=== PATIENT | female | born 1975 | race Caucasian/White ===

== ENCOUNTER 2024-11-18 10:27 | Outpatient (CLI) | payer OTHER, SELFPAY ==
[2024-11-18 18:20] LABS: Basophils # 0.1 K/mm3 (0-0.2); Basophils % 1.1 % (0.1-2.0); Eosinophils # 0.3 K/mm3 (0.0-0.4); Hematocrit 47.4 % (37.0-47.0); Lymphocytes # 1.4 K/mm3 (0.7-4.5); Lymphocytes % 23.1 % (10-50); Mean Corpuscular HGB Conc 31.6 g/dL (31.8-35.4); Mean Corpuscular Volume 91.5 fl (81-99); Mean Platelet Volume 9.2 fl (7.4-10.4); Monocytes # 0.4 K/mm3 (0.1-1.0); Monocytes % 6.3 % (1.7-9.3); Neutrophils % 63.2 % (37.0-80.0); Platelet Count 389 K/mm3 (142-424); Red Blood Count 5.18 M/mm3 (4.20-5.40); Red Cell Distribution Width 14.4 % (11.5-17.5); White Blood Count 6.2 K/mm3 (4.8-10.8)
[2024-11-18 18:45] LABS: Albumin Level 5.2 g/dl (3.5-5.0); Chloride 105 mmol/L (98-107); Sodium 143 mmol/L (136-145)
[2024-11-18 18:46] LABS: Potassium 4.2 mmoL/L (3.5-5.1)
[2024-11-18 18:48] LABS: Alanine Aminotransferase 29 U/L (12-78); Anion Gap 17.2 mEq/L (5-15); Aspartate Amino Transferase 33 U/L (14-36); Blood Urea Nitrogen 22 mg/dl (7-17); Carbon Dioxide 25 mmol/L (22.0-30.0); Estimated Glomerular Filt Rate 89 ml/min (>60); GFR (African American) 108 ML/MIN (>60)
[2024-11-18 18:49] LABS: Albumin/Globulin Ratio 1.4 (1.1-1.8); Alkaline Phosphatase 91 U/L (38-126); Bilirubin,Total 0.8 mg/dl (0.2-1.3); Calcium 9.6 mg/dl (8.4-10.2); Chol/HDL Ratio 6.7 (1-3.5); Cholesterol 317 mg/dl (140-200); Globulin 3.8 g/dL (1.3-3.2); Glucose 172 mg/dl (74-100); HDL Cholesterol 47 mg/dl (40-60); Triglycerides 195 mg/dl (30-150); VLDL Cholesterol 39 mg/dL (0-40)
[2024-11-18 19:20] LABS: Direct LDL Cholesterol 207.81 mg/dL (100-129)
[2024-11-18 19:35] LABS: Thyroid Stimulating Hormone 1.26 uIU/mL (0.465-4.68)
[2024-11-18 19:51] LABS: Hemoglobin A1C 7.6 % (4.0-6.0)
== END 2024-11-18 23:59 | disposition home or self-care (01) ==
LOC: LAB.DROPOF 11-19 10:42
PROVIDERS: PCP Family Medicine; Visit Provider Family Medicine
DX: I10 Essential (primary) hypertension (principal); I25.10 Atherosclerotic heart disease of native coronary artery without angina pectoris; F90.9 Attention-deficit hyperactivity disorder, unspecified type; E78.5 Hyperlipidemia, unspecified; E11.9 Type 2 diabetes mellitus without complications; Z79.4 Long term (current) use of insulin; Z79.85 Long-term (current) use of injectable non-insulin antidiabetic drugs
CPT/HCPCS: 80053; 80061; 83036; 84443; 85025

== ENCOUNTER 2025-04-05 14:22 | Outpatient (CLI) | payer OTHER, SELFPAY ==
[2025-04-05 20:09] LABS: Alanine Aminotransferase 25 U/L (12-78); Albumin Level 4.2 g/dl (3.5-5.0); Albumin/Globulin Ratio 1.4 (1.1-1.8); Alkaline Phosphatase 98 U/L (38-126); Anion Gap 16.1 mEq/L (5-15); Aspartate Amino Transferase 33 U/L (14-36); Bilirubin,Total 0.6 mg/dl (0.2-1.3); Blood Urea Nitrogen 18 mg/dl (7-17); Calcium 8.4 mg/dl (8.4-10.2); Carbon Dioxide 27 mmol/L (22.0-30.0); Chloride 100 mmol/L (98-107); Cholesterol 166 mg/dl (140-200); Creatinine,Serum 0.50 mg/dl (0.52-1.04); Estimated Glomerular Filt Rate 131 ml/min (>60); GFR (African American) 159 ML/MIN (>60); Globulin 2.9 g/dL (1.3-3.2); Glucose 218 mg/dl (74-100); HDL Cholesterol 36 mg/dl (40-60); Potassium 4.1 mmoL/L (3.5-5.1); Sodium 139 mmol/L (136-145); Total Protein,Serum 7.1 g/dl (6.3-8.2)
[2025-04-05 20:18] LABS: Triglycerides 574 mg/dl (30-150)
[2025-04-05 21:02] LABS: Hepatitis C Ab Qual. W/ RFX NEGATIVE (Negative)
--- OUTSIDE RECORDS SUMMARY | 2025-04-06 07:27 | XMS_ITS | Clinical Summary ---
Author Organization [facility] Address [address] [place] [address] Phone Care Team Providers Care Deputy Court Clerk Name Role Phone Nonstaff, Referring Primary Care Provider Unavai lable Allergies Active Allergy Reactions Criticality Noted Date Comments Androgenic Anabolic Steroid Other (See Comments) 01/28/2023 Caused altered mental status Metformin Diarrhea High 12/20/2023 Semaglutide Nausea And Vomiting High 12/20/2023 Penicillins Hives 01/28/2023 Liraglutide Nausea And Vomiting High 12/20/2023 Ondansetron Hcl Anaphylaxis High 01/28/2023 Medications clopidogreL (PLAVIX) 75 mg Oral Tablet Take 1 Tablet by mouth daily. 30 Tablet 1 3 Active Additional Information Patient not taking.Reported on 06/25/2024 carvediloL (COREG) 6.25 mg Oral Tablet Take 1 Tablet by mouth 2 times daily (with meals). 60 Tablet 3 Active Additional Information Patient taking differently: 12.5 mgOral 2 TIMES DAILY WITH MEALS, Reason: Therapy Completed, Reported on 12/20/2023 rosuvastatin (CRESTOR) 40 mg Oral Tablet Take 40 mg by mouth daily. 3 Active XARELTO 2.5 mg Oral Tablet Take 2.5 mg by mouth 2 times daily (with meals). 3 Active pantoprazole (PROTONIX) 40 mg Oral Tablet, Delayed Release (E.C.) Take 40 mg by mouth nightly. 3 Active nitroGLYCERIN (NITROSTAT) 0.4 mg SL Tablet, Sublingual Place 0.4 mg under the tongue every 5 minutes as needed. Active Magnesium Oxide 250 mg magnesium Oral Tablet Take 250 mg by mouth daily. 3 Active losartan (COZAAR) 25 mg Oral Tablet Take 25 mg by mouth daily. 3 Active isosorbide mononitrate (MONOKET) 20 mg Oral Tablet Take 30 mg by mouth daily. 3 Active fUROsemide (LASIX) 20 mg Oral Tablet Take 20 mg by mouth daily. 3 Active ergocalciferol (DRISDOL) 1,250 mcg (50,000 unit) Oral Capsule Take 50,000 Units by mouth two times a week. 3 Active buPROPion (WELLBUTRIN XL) 150 mg Oral Tablet Sustained Release 24 hr Take 200 mg by mouth every morning. twice daily 3 Active busPIRone (BUSPAR) 5 mg Oral Tablet Take 5 mg by mouth 2 times daily. 3 Active cetirizine (ZYRTEC) 10 mg Oral Tablet Take 10 mg by mouth daily. Active GLUCAGEN HYPOKIT 1 mg Inj Recon Soln 4 Active promethazine (PHENERGAN) 12.5 mg Oral Tablet TAKE ONE (1) TABLET EVERY 8 HOURS BY ORAL ROUTE NEEDED FOR THREE (3) DAYS. Active dapagliflozin propanediol (FARXIGA) 10 mg Oral TabletIndicatio ns:Type 2 diabetes mellitus with hyperglycemia, with long-term current use of insulin (HCC) Take 1 Tablet by mouth daily. 30 Tablet 11 4 Active Insulin [place], Disposable, (OLIVIER PEN NEEDLE) [facility]:Type 2 diabetes mellitus with hyperglycemia, with long-term current use of insulin (HCC) Use to inject insulin up to six times daily. Dx: E 11. 200 Each 11 4 Active Additional Information Patient not taking.Reported on 06/25/2024 aspirin 81 mg Oral Tablet, Delayed Release (E.C.) Take 1 Tablet by mouth daily. 8 Active atomoxetine (STRATTERA) 40 mg Oral Capsule TAKE 1 CAPSULE BY MOUTH EVERY DAY IN THE MORNING Active fenofibrate (TRICOR) 145 mg Oral Tablet Take 1 tablet every day by oral route for 90 days. 4 Active Insulin Syringe-Needle U-100 (TRUEPLUS INSULIN) 1 mL 31 gauge x 5/16 Misc Syringe Subcutaneous (Inject under the skin) 1 Each. 3 Active BRILINTA 90 mg Oral Tablet Take 1 tablet twice a day by oral route for 90 days. 2 Active MOUNJARO 5 mg/0.5 mL SubQ Pen Injector Inject 0.5 mL every week by subcutaneous route for 28 days. 4 Active traZODone (DESYREL) 50 mg Oral Tablet TAKE 1 TABLET BY MOUTH EVERYDAY AT BEDTIME Active insulin glargine U-300 conc (TOUJEO MAX U-300 SOLOSTAR) 300 unit/mL (3 mL) SubQ Insulin Pen Inject 40 units every evening. 6 mL 5 4 Active insulin lispro-aabc (LYUMJEV KWIKPEN U-100 INSULIN) 100 unit/mL SubQ Insulin Pen Inject at meals as directed; may use up to total daily dose of 60 units 30 mL 5 4 Active Blood-Glucose Sensor (DEXCOM G7 SENSOR) Misc Device 1 Each by Misc.(Non-Drug; Combo Route) route every 10 days. 9 Each 3 4 Active ezetimibe (ZETIA) 10 mg Oral Tablet Take 1 Tablet by mouth daily. 30 Tablet 11 4 Active Active Problems Problem Noted Date Diagnosed Date Long-term insulin use 10/31/2023 Hypertension associated with diabetes 10/31/2023 Encounter for long-term (current) use of medicat ions 10/31/2023 Obesity, diabetes, and hypertension syndrome 09/2023 Abnormal weight gain 10/31/2023 Coronary artery disease invo lving [place] coronary artery of [place] heart with angina pectoris 06/21/2023 Severe obesity (BMI 35.0-39.9) with comorbidity 06/21/2023 Type 2 diabetes mellitus 06/21/2023 Gastroesophageal reflux disease without esophagi tis 06/21/2023 Essential hypertension 06/21/2023 Mood disorder 06/21/2023 Acute chest pain 06/20/2023 Surgical History Surgery Date Site/Laterality Comments SECTION ORTHOPEDIC SURGERY SECTION WRIST FRACTURE SURGERY Medical History Medical History Date Comments ST elevation (STEMI) myocardial infarction (HCC) Diabetes mellitus (HCC) Hypertension Coronary artery disease [facility] 04/04/23 Anxiety disorder High cholesterol Gallstone Adhd Family History Medical History Relation Name Comments Diabetes Brother High Blood Pressure Brother Kidney Disease Brother Diabetes Father Diabetes Mother High Blood Pressure Mother Thyroid Disease Mother Diabetes Paternal Grandfather Thyroid Disease Paternal Grandfather High Blood Pressure Paternal Grandmother Diabetes Sister High Blood Pressure Sister Kidney Disease Sister Relation Name Status Comments Brother Father Mother Paternal Grandfather Paternal Grandmother Sister Social History Tobacco Use Types Packs/Day Years Used Date Smoking Tobacco: Never Smokeless Tobacco: Never Tobacco Cessation:Counseling Given: Not Answered Alcohol Use Standard Drinks/Week Comments Never 0 (1 standard drink = 0.6 oz pur e alcohol) Overall Financial Resource Strain (CARDIA) Answe r Date Recorded How hard is it for you to pa y for the very basics like food, housing, medical care, and heating? Not hard at all 06/21/2023 PHQ-2 Answer Date Recorded PHQ-2 Total Score 0 06/21/2023 Exercise Vital Sign Answer Date Recorde d On average, how many days pe r week do you engage in moderate to strenuous exercise (like a brisk walk)? 0 days 06/21/2023 On average, how many minutes do you engage in exercise at this level? 0 min 06/21/2023 Hunger Vital Sign Answer Date Recorded Within the past 12 months, y ou worried that your food would run out before you got the money to buy more. Never true 06/21/20 23 Within the past 12 months, t he food you bought just didn't last and you didn't have money to get more. Never true 06/21/2023 PRAPARE - Transportation Answer Date Re corded In the past 12 months, has l ack of transportation kept you from medical appointments or from getting medications? No 06/01 In the past 12 months, has l ack of transportation kept you from meetings, work, or from getting things needed for daily living? No 06/21/2023 Sexually Active Control Partners Comments Not Currently Comments No Sex and Gender Information Value Date Recorded Sex Assigned at Not on file Legal Sex Female 7:37 PM EDT Gender Identity Not on file Sexual Orientation Not on file Obstetrics History Last Filed Vital Signs Vital Sign Reading Time Taken Comments Blood Pressure 126/80 06/25/2024 10:52 AM EDT Pulse 103 06/25/2024 10:52 AM EDT Temperature 36.9 C (98.5 F) 12/10/2023 3:04 PM EDT Respiratory Rate 12 06/25/2024 10:52 AM EDT Oxygen Saturation 98% 12/10/2023 6:21 PM EDT Inhaled Oxygen Concentration - - Weight 95.7 kg (211 lb) 06/25/2024 10:52 AM EDT Height 154.9 cm (5' 1 ) 06/25/2024 10:52 AM EDT Body Mass Index 39.87 06/25/2024 10:52 AM EDT Plan of Treatment Health Maintenance Due Date Last Done Comments Annual Wellness Exam 12/23/1978 Kidney Health: uACR 12/23/1985 Diabetic Eye Exam 12/23/1993 Pneumococcal Vaccine 0-49 (1 of 2 - PCV) 12/23/1994 Cervical Cancer Screening 12/23/1996 Pap Smear 12/23/1996 HPV/Pap Cotest 12/23/2005 Hepatitis B Vaccine (2 of 3 - 19+ 3-dose series) 02/12/2012 01/15/2012 Breast Cancer Screening 2015 Cologuard 12/23/2020 Colon Cancer Screening 12/23/2020 Colonoscopy 12/23/2020 FIT 12/23/2020 Sigmoidoscopy 12/23/2020 Virtual Colonography 12/23/2020 COVID-19 Vaccine ( season) 2024 Lipids 06/21/2024 06/21/2023, 03/01/2022 Hemoglobin A1c 12/14/2024 06/16/2024, 02/0 09/2023, 06/21/2023, Additional history exists Influenza Vaccine (#1) 2025 06/16/2019, 2017 Kidney Health: eGFR 06/16/2025 06/16/2024, 12/10/2023, 06/21/2023, Additional history exists DTaP/TDaP/Td (2 - Td or Tdap) 03/10/2029 03/10/2019 Meningococcal B Vaccine Aged Out No l onger eligible based on patient's age to complete this topic Procedures Procedure Name Priority Date/Time Associated Diagnosis Comments COMPREHENSIVE METABOLIC PANEL Routine 06/16/2024 HEMOGLOBIN A1C Routine 06/16/2024 LIPID SCREEN Routine 06/21/2023 10:01 AM EDT from Last 3 Months or Most Recently Relevant to Health Maintenance Results * HEMOGLOBIN A1C (06/16/2024) Hgb A1C 7.0 SEP OFFICE Comment:4.8-5.6 Blood VENOUS BLOOD / Unknown 06/16/2024 us Historical Provider CHEMISTRY ORDERABLES Final R esult SEP OFFICE * COMPREHENSIVE METABOLIC PANEL (06/16/2024) Glucose 167 MG/DL SEP OFFICE Comment:70-99 BUN 19 4 - 21 MG/DL SEP OFFICE Comment:-24 Creatinine 0.8 0.5 - 1.1 MG/DL SEP OFFICE Comment:0.57-1.00 EGFR 94.0 ML/MIN/1.7 3M2 SEP OFFICE Comment:>59 BUN/Creatinine Ratio 24 SEP OFFICE Comment:9-23 Sodium 141 137 - 147 MMOL/L SEP OFFICE Comment:134-144 Potassium 4.2 3.4 - 5.3 MMOL/L SEP [facility]ICE Comment:3.5-5.2 Chloride 102 99 - 108 MMOL/L SEP [facility]ICE Comment:96-106 CO2 21 MMOL/L SEP OFFICE Comment:20-29 Calcium 9.9 8.6 - 10.4 mg/dL SEP OFFICE Comment:8.7-10.2 Protein, Total 7.2 SEP OFFICE Comment:6.0-8.5 Albumin 4.3 GM/DL SEP OFFICE Comment:3.9-4.9 Globulin 2.9 G/DL(CALC) SEP OFFICE Comment:1.5-4.5 Total Bilirubin 0.4 0.1 - 1.4 MG/DL SEP OFFICE Comment:0.0-1.2 Alkaline Phosphatase 63 SEP OFFICE Comment:44-121 AST 19 13 - 35 IU/L SEP OFFICE Comment:0-40 ALT 18 7 - 35 IU/L SEP OFFICE Comment:0-32 Blood VENOUS BLOOD / Unknown 06/16/2024 us Historical Provider CHEMISTRY ORDERABLES Final R esult Performing Organization Address [facility] Co de Phone Number SEP OFFICE * LIPID SCREEN (06/21/2023 10:01 AM EDT) Cholesterol 143 <200 mg/dL 06/21/2023 11:12 AM EDT [employer] Comment: < 200 Desirable 200 - 239 Borderline High >= 240 High Triglyceride 142 <150 mg/dL 06/21/2023 11:12 AM EDT [employer] Comment: < 150 Normal 150 - 199 Borderline High 200 - 499 High >= 500 Very High HDL 41 >=40 mg/dL 06/21/2023 11:12 AM EDT [employer] Comment: > 60 Optimal 40 - 60 Acceptable < 40 Low LDL Calculated 77 <100 mg/dL 06/21/2023 11:12 AM EDT [employer] Comment: < 100 Optimal 100 - 129 Near or above optimal 130 - 159 Borderline High 160 - 189 High >= 190 Very High Non-HDL-C Calculated 102 <=129 mg/dL 06/21/2023 11:12 AM EDT [employer] Comment: <130 Desirable 130-159 Above Desirable 160-189 Borderline High 190-219 High >= 220 Very High Fasting Specimen? Yes None 023 11:12 AM EDT [facility] Blood VENOUS BLOOD / Unknown Venipuncture / Unknown 06/21/2023 10:01 AM EDT 06/21/2023 10:14 AM EDT Jerad Beltran DO CHEMISTRY ORDERABLES Fin al Result Performing Organization Address [facility] Co de Phone Number [employer] [address] [facility] , [place] [address] [facility] [address] [place] [address] from Last 3 Months or Most Recently Relevant to Health Maintenance Insurance [employer] [id number] [employer] [facility] [id number] [id number] [employer] [place] [employer] [id number] Advance Directives For more information, please contact: [phone] * Full Code (Latest Code Status on File) Date Activated Date Inactivated Comments 06/20/2023 5:34 PM 06/21/2023 6:[address] Clerk Relationship Specialty Start Date End Date Nonstaff, Referring PCP - General 12/10/23
[2025-04-07 09:14] LABS: Hepatitis B Surface Antigen Negative (Negative)
== END 2025-04-05 23:59 | disposition home or self-care (01) ==
LOC: LAB.DROPOF 04-06 07:25
PROVIDERS: PCP Family Medicine; Visit Provider Family Medicine
DX: E11.9 Type 2 diabetes mellitus without complications (principal); I10 Essential (primary) hypertension; E78.5 Hyperlipidemia, unspecified; Z11.59 Encounter for screening for other viral diseases
CPT/HCPCS: 80053; 80061; 86803; 87340; 87389

== ENCOUNTER 2025-04-18 20:53 | Emergency (ER) | payer OTHER, SELFPAY ==
[2025-04-18] VITALS (8 sets, daily range): BP systolic 121–163; BP diastolic 53–92; PULSE 77–97; RESP 12–97; TEMP 36.6; O2SAT 94–98; BMI 40.0
--- NOTE | 2025-04-18 20:46 | CT_ITS ---
PROCEDURE INFORMATION: Exam: CT Head Without Contrast Exam date and time: 04/18/2025 9:05 PM Age: 49 years old Clinical indication: Injury or trauma; Other: Fall severe posterior EDGE anticoagulant TECHNIQUE: Imaging protocol: Computed tomography of the head without contrast. Radiation optimization: All CT scans at this facility use at least one of these dose optimization techniques: automated exposure control; mA and/or kV adjustment per patient size (includes targeted exams where dose is matched to clinical indication); or iterative reconstruction. COMPARISON: No relevant prior studies available. FINDINGS: Brain: Normal. No hemorrhage. Unremarkable white matter. No mass effect. Cerebral ventricles: No ventriculomegaly. Paranasal sinuses: Visualized sinuses are unremarkable. No fluid levels. Mastoid air cells: Visualized mastoid air cells are well aerated. Bones: Unremarkable. No acute fracture. Soft tissues: Unremarkable. IMPRESSION: No acute intracranial abnormality.
--- NOTE | 2025-04-18 20:46 | CT_ITS ---
PROCEDURE INFORMATION: Exam: CTA Head With Contrast, Arteriography Exam date and time: 04/18/2025 9:08 PM Age: 49 years old Clinical indication: Injury or trauma; Fall; Blunt trauma; Head; Additional info: Fall severe posterior EDGE anticoagulant TECHNIQUE: Imaging protocol: Computed tomographic angiography of the head with contrast. Exam focused on the arteries. 3D rendering (Not supervised by radiologist): MIP and/or 3D reconstructed images were created by the technologist. Radiation optimization: All CT scans at this facility use at least one of these dose optimization techniques: automated exposure control; mA and/or kV adjustment per patient size (includes targeted exams where dose is matched to clinical indication); or iterative reconstruction. Contrast material: ISO 370; Contrast volume: 80 ml; Contrast route: INTRAVENOUS (IV); COMPARISON: CT HEAD/BRAIN WO CON 04/18/2025 9:05 PM FINDINGS: ANTERIOR CIRCULATION: Right internal carotid artery: Intracranial segment is patent with no significant stenosis. No aneurysm. Right middle cerebral artery: No occlusion or significant stenosis. No aneurysm. Right anterior cerebral artery: No occlusion or significant stenosis. No aneurysm. Left internal carotid artery: Intracranial segment is patent with no significant stenosis. No aneurysm. Left middle cerebral artery: No occlusion or significant stenosis. No aneurysm. Left anterior cerebral artery: No occlusion or significant stenosis. No aneurysm. POSTERIOR CIRCULATION: Right vertebral artery: No occlusion or significant stenosis. No aneurysm. Left vertebral artery: No occlusion or significant stenosis. No aneurysm. Basilar artery: No occlusion or significant stenosis. No aneurysm. Right posterior cerebral artery: No occlusion or significant stenosis. No aneurysm. Left posterior cerebral artery: No occlusion or significant stenosis. No aneurysm. Brain: No definite mass, mass effect, or midline shift. Cerebral ventricles: No ventriculomegaly. Bones/joints: Unremarkable. No acute fracture. Soft tissues: Unremarkable. IMPRESSION: No large vessel stenosis or occlusion.
--- NOTE | 2025-04-18 20:46 | CT_ITS ---
PROCEDURE INFORMATION: Exam: CTA Neck With Contrast Exam date and time: 04/18/2025 9:08 PM Age: 49 years old Clinical indication: Injury or trauma; Other: Fall severe posterior EDGE anticoagulant TECHNIQUE: Imaging protocol: Computed tomographic angiography of the neck with contrast. Exam focused on the cervical segments of the vasculature. 3D rendering (Not supervised by radiologist): MIP and/or 3D reconstructed images were created by the technologist. Radiation optimization: All CT scans at this facility use at least one of these dose optimization techniques: automated exposure control; mA and/or kV adjustment per patient size (includes targeted exams where dose is matched to clinical indication); or iterative reconstruction. Contrast material: ISO 370; Contrast volume: 80 ml; Contrast route: INTRAVENOUS (IV); COMPARISON: CT CERVICAL SPINE WO CON 04/18/2025 9:06 PM FINDINGS: Right common carotid artery: No stenosis. No dissection or occlusion. Right internal carotid artery: No stenosis of the extracranial segment. No dissection or occlusion. Right external carotid artery: No occlusion or stenosis of the origin. Left common carotid artery: No stenosis. No dissection or occlusion. Left internal carotid artery: Mild mixed calcific and noncalcified atherosclerotic disease of the left carotid bulb resulting in mild stenosis. Left external carotid artery: No occlusion or stenosis of the origin. Right vertebral artery: No stenosis. No dissection or occlusion. Left vertebral artery: No stenosis. No dissection or occlusion. Soft tissues: Normal. No significant soft tissue swelling. Bones/joints: No acute fracture. IMPRESSION: Mild mixed calcific and noncalcified atherosclerotic disease of the left carotid bulb resulting in mild stenosis. REFERENCES: NASCET CRITERIA. The degree of stenosis in the cervical segment of the internal carotid artery is based on NASCET criteria. Normal is no stenosis. Mild is less than 50% stenosis. Moderate is 50-69% stenosis. Severe is 70% to 99% stenosis. Total occlusion is no detectable patent lumen.
--- NOTE | 2025-04-18 20:46 | ECG_ITS ---
APPROVED REPORT Exam: Resting ECG HR:86 bpm ECG Measurements Heart Rate 86 AXES MO 156 P 58 QRSd 91 QRS 20 QT 374 T 19 QTc 418 Conclusion SINUS RHYTHM LOW QRS VOLTAGE IN PRECORDIAL LEADS [QRS DEFLECTION < 1.0 mV IN CHEST LEADS] Electronically signed by : MIRANDA RODAS, 04/25/2025 07:28:44
--- NOTE | 2025-04-18 20:54 | HMH.EDGENADL ---
Discharge Plan Disposition Patient Disposition: Home, Self-Care Prescriptions Prescriptions: No Action Brilinta 90 mg tablet PO Patient Comments: TAKE 1 TABLET BY MOUTH TWICE DAILY rosuvastatin 40 mg tablet PO Patient Comments: TAKE 1 TABLET BY MOUTH ONCE DAILY isosorbide dinitrate 30 mg tablet 30 mg PO BID Qty: 180 3RF Rx Instructions: allow nitrate-free interval of 12-14 hrs per 24-hr period magnesium aspart,citrate,oxide 400 mg magnesium capsule 400 mg PO DAILY Qty: 90 3RF carvedilol [Coreg] 12.5 mg tablet 12.5 mg PO BID Qty: 180 3RF Rx Instructions: must administer with a meal/food pantoprazole 40 mg tablet,delayed release (DR/EC) 40 mg PO ONCE Qty: 90 3RF propranolol 10 mg tablet 10 mg PO ONCE Qty: 90 3RF furosemide 20 mg tablet 20 mg PO ONCE Qty: 90 3RF Mounjaro 2.5 mg/0.5 mL pen injector 0RF lisdexamfetamine [Vyvanse] 50 mg capsule 50 mg PO DAILY Qty: 30 0RF Rx Instructions: morning Mounjaro 2.5 mg/0.5 mL pen injector 2.5 mg SQ WEEKLY Qty: 2 12RF Rx Instructions: for 4 weeks nitroglycerin 0.4 mg tablet, sublingual 0.4 mg sublingual Q5-15M PRN (Reason: chest pain) Qty: 20 12RF Rx Instructions: do not exceed 3 doses per episode lisdexamfetamine [Vyvanse] 10 mg capsule 10 mg PO DAILY Qty: 30 0RF Rx Instructions: afternoon (DME) pen needle, diabetic [Comfort EZ Pen [place]] 31 gauge x 1/4 needle See Rx Instructions .Route Qty: 200 12RF Rx Instructions: As directed (DME) FreeStyle [place] 3 Tionesta Misc See Rx Instructions .Route Qty: 1 0RF Rx Instructions: As directed fenofibrate nanocrystallized 145 mg tablet 145 mg PO ONCE Qty: 90 3RF Mounjaro 7.5 mg/0.5 mL pen injector 7.5 mg SQ WEEKLY Qty: 2 3RF (DME) FreeStyle [place] 3 Plus Sensor Device See Rx Instructions .Route Qty: 3 10RF Rx Instructions: As directed ergocalciferol (vitamin D2) 1,250 mcg (50,000 unit) capsule 2,500 mcg PO QWEEK Qty: 14 12RF Xarelto 2.5 mg tablet 2.5 mg PO BID Qty: 60 3RF hydroxyzine HCl 25 mg tablet 25 mg PO BID Qty: 180 3RF losartan 25 mg tablet 25 mg PO DAILY Qty: 90 3RF Repatha SureClick 140 mg/mL pen injector 140 mg SQ Q2W Qty: 2 10RF insulin glargine [Basaglar KwikPen U-100 Insulin] 100 unit/mL (3 mL) insulin pen 100 unit SQ HS Qty: 15 10RF Fiasp FlexTouch U-100 Insulin 100 unit/mL (3 mL) insulin pen 1 sliding scale dose SQ USEASDIRECTD Qty: 15 12RF Rx Instructions: per sliding scale maximum 150 units/day Activity Restrictions/Add. Instructions Additional Instructions/Restrictions: At this time it was felt you are safe to be discharged home. If new or worsening symptoms please do not hesitate to return the emergency department. As discussed you are likely working too much and not eating enough. Please continue to hydrate as best as you are able. Please follow-up with your family doctor for long-term management of your Mounjaro and if symptoms continue with headache you may need further investigation such as an MRI. Clinical Impressions Clinical Impression: Headache, Syncope Instructions Patient Instructions: DI for Syncope in Adults (Fainting), DI for Syncope in Children (Fainting) Print Language Print Language: Iranian Discharge ED Provider: Ernst Payne General Adult HPI General Chief complaint: Syncope Stated complaint: syncope Time Seen by Provider: 04/18/25 20:53 History of Present Illness HPI narrative: Patient is a 49-year-old female with past medical history of insulin-dependent diabetes, on Mounjaro recently initiated, multiple previous coronary artery stents on anticoagulation who presents emergency department for evaluation of headache. Patient remembers falling and striking her head at some point this morning but does not member how she got home. She rested in bed and awoke at approximately 5 to 6 PM with a severe posterior headache. She has worked significant number of hours recently and has fluctuating glucose levels at baseline with recurrent hypoglycemia. Her daughter works EMS picked her up and she presents here for continued evaluation. Patient is currently complaining of severe posterior headache at the base of the skull. Fingerstick en route acceptable. No other trauma no other acute complaints at this time. Please note that above description of symptoms, in this electronic medical record under categorization of recalled from ER triage doctor by RN are reflective of an initial nursing assessment, however, is not reflective of my full history and physical exam that was personally taken and clarified. Consequentially, this preceding description of symptoms, which may include the patient's categorized chief complaint in the EMR, do not reflect my personal clinical impression, and the ultimate description of history of present illness and patient stated complaints should be deferred to this section of the note. Unless stated otherwise or congruent with this section of the note, additional signs, symptoms, or incongruence should be interpreted as inaccurate with my clinical impression. Related Data Home Medications ?Medication ?Instructions ?Recorded ?Confirmed rosuvastatin 40 mg tablet mg PO 11/18/24 04/05/25 ticagrelor 90 mg tablet (Brilinta) mg PO 11/18/24 04/05/25 Previous Rx's ?Medication ?Instructions ?Recorded carvedilol 12.5 mg tablet (Coreg) 12.5 mg PO BID #180 tabs 11/18/24 isosorbide dinitrate 30 mg tablet 30 mg PO BID #180 tabs 11/18/24 magnesium aspart,citrate,oxide 400 mg PO DAILY #90 caps 11/18/24 pantoprazole 40 mg tablet,delayed 40 mg PO ONCE #90 tabs 11/18/24 release propranolol 10 mg tablet 10 mg PO ONCE #90 tabs 11/18/24 blood-glucose,electric meter tester,cont #1 ea 11/20/24 (FreeStyle Jes[place] 3 Tionesta) pen needle, diabetic 31 gauge x #200 ea 11/20/2410/03 (Comfort EZ Pen [place]) furosemide 20 mg tablet 20 mg PO ONCE #90 tabs 12/16/24 fenofibrate nanocrystallized 145 145 mg PO ONCE #90 tabs 01/11/25 mg tablet tirzepatide 7.5 mg/0.5 mL 7.5 mg (0.5 mL) SQ WEEKLY #2 mL 01/18/25 subcutaneous pen injector (Jeffy) blood-glucose sensor (FreeStyle #3 ea 03/05/25 Jessee 3 Plus Sensor device) ergocalciferol (vitamin D2) 1,250 2,500 mcg (2 x 1,250 mcg (50,000 03/05/25 mcg (50,000 unit) capsule unit)) PO QWEEK #14 caps evolocumab 140 mg/mL subcutaneous 140 mg SQ Q2W #2 mL 03/05/25 pen injector (Angel Ji) hydroxyzine HCl 25 mg tablet 25 mg PO BID #180 tabs 03/05/25 losartan 25 mg tablet 25 mg PO DAILY #90 tabs 03/05/25 rivaroxaban 2.5 mg tablet (Xarelto) 2.5 mg PO BID #60 tabs 03/05/25 lisdexamfetamine 50 mg capsule 50 mg PO DAILY #30 caps 04/05/25 (Vyvanse) nitroglycerin 0.4 mg sublingual 0.4 mg sublingual Q5-15M PRN chest 04/05/25 tablet pain #20 tabs tirzepatide 2.5 mg/0.5 mL 2.5 mg (0.5 mL) SQ WEEKLY #2 mL 04/05/25 subcutaneous pen injector (Lucuncamiloro) lisdexamfetamine 10 mg capsule 10 mg PO DAILY #30 caps 04/12/25 (Vyvanse) Basaglar KwikPen U-100 Insulin 100 100 unit SQ HS #15 mL 04/15/25 unit/mL (3 mL) subcutaneous (insulin glargine) Fiasp FlexTouch U-100 Insulin 100 1 sliding scale dose SQ 04/16/25 unit/mL (3 mL) subcutaneous pen USEASDIRECTD #15 mL (insulin aspart (niacinamide)) Allergies Allergy/AdvReac Type Severity Reaction Status Date / Time ondansetron (From Zofran) Allergy Severe Anaphylaxis Verified 04/05/25 13:33 Penicillins Allergy Mild Rash Verified 04/05/25 13:33 semaglutide (From Ozempic) Allergy Mild Vomiting Verified 04/05/25 13:33 Steroid Allergy Allergy Mild Agitated Uncoded 04/05/25 13:33 [facility] Disclaimer: The information contained in this section may have been updated after the patient was seen, as this information can be updated by other users. Medical History Uterine adhesions delivery delivered STEMI (ST elevation myocardial infarction) Anxiety Hyperlipemia Hypertension Diabetes ADHD Surgical History H/O right wrist surgery H/O heart artery stent Social History (Updated 04/05/25 @ 13:35 by Cristina Crowder MA) Smoking Status: Never smoker alcohol intake: never current occupational status: employed Travel in the last 8 weeks?: None Have you lived/traveled outside [place] in past 30 days?: No Contact w/someone who lives/traveled outside US past 30 days?: No Exposure to someone with infectious disease in past 14 days?: No Do you have a fever (greater than 100.4 F or 38 C)?: No Have you tested positive for COVID-19?: No Exposed to someone with COVID-19 in past 14 days?: No Do you have a sore throat?: No Do you have a cough?: No Do you have any weakness?: No Do you have any diarrhea?: No Are you experiencing any unusual bleeding?: No Do you have any muscle aches/pain?: No Do you have any abdominal pain?: No Are you experiencing loss of taste or smell?: Yes ROS Obtained: Yes Systems reviewed as appropriate & no additional complaints except as documented Physical Exam General General appearance: alert Comment: Appearing uncomfortable in bed Head Head exam: atraumatic and normocephalic Eye Eye exam: Present PERRL and EOMI ENT ENT exam: Present mucous membranes moist Neck Neck exam: Present normal inspection Chest Chest inspection: Present normal inspection and symmetric chest wall rise Respiratory Respiratory exam: Present normal lung sounds bilaterally; Absent respiratory distress Cardiovascular Cardiovascular exam: Present regular rate and normal rhythm Abdominal Exam Abdominal exam: Present soft; Absent tenderness Extremities Exam Extremities exam: Present normal inspection Neurological Exam Neurological exam: Present alert, oriented X3 and CN II-XII intact; Absent motor sensory deficit Psychiatric Psychiatric exam: Present normal affect Skin Skin exam: Present warm and dry Medical Decision Making Medical Records Screening: Per USPSTF and CDC recommendations, given the prevalence of disease in our region, it is our hospital?s policy to screen for HIV and viral Hepatitis for all patients aged 18 and over and those with ongoing risk factors. Geovanny Inquiry Pt receiving controlled substance: No Vital Signs: 04/18/25 20:49 04/18/25 22:01 04/18/25 22:30 Temperature 97.8 F Temperature Source Temporal Artery Scan Pulse Rate 79 Pulse Rate [Left] 97 H Respiratory Rate 97 H 18 Blood Pressure 121/53 L 129/62 Blood Pressure [Right Arm] 163/92 H Blood Pressure Mean 75 78 Blood Pressure Mean [Right Arm] 115 Blood Pressure Source [Right Arm] Automatic Cuff Blood Pressure Position [Right Arm] Sitting 02 Sat by Pulse Oximetry 94 L 96 Oxygen Delivery Method Room Air 04/18/25 22:30 04/18/25 22:45 Temperature Temperature Source Pulse Rate 81 77 Pulse Rate [Left] Respiratory Rate 16 20 Blood Pressure Blood Pressure [Right Arm] Blood Pressure Mean Blood Pressure Mean [Right Arm] Blood Pressure Source [Right Arm] Blood Pressure Position [Right Arm] 02 Sat by Pulse Oximetry 98 97 Oxygen Delivery Method Lab Data Lab Results 04/18/25 20:50: WBC 5.4, RBC 4.90, Hgb 13.7, Hct 42.1, MCV 85.9, MCH 28.0, MCHC 32.5, RDW 14.5, Plt Count 284, MPV 8.7, Neut % (Auto) 55.0, Lymph % (Auto) 31.8, [place] % (Auto) 7.6, Eos % (Auto) 4.6, Baso % (Auto) 0.6, Neut # (Auto) 3.0, Lymph # (Auto) 1.7, [place] # (Auto) 0.4, Eos # (Auto) 0.3, Baso # (Auto) 0.0, Sodium 141, Potassium 3.7, Chloride 108 H, Carbon Dioxide 25, Anion Gap 11.7, BUN 15, Creatinine 0.50 L, Estimated Creat Clear 200, Estimated GFR 131, Est GFR ( Amer) 159, Glucose 195 H, Calcium 9.3, Magnesium 1.9, Total Bilirubin 0.7, AST 25, ALT 20, Alkaline Phosphatase 107, Total Protein 7.3, Albumin 4.2, Globulin 3.1, Albumin/Globulin Ratio 1.4, TSH 0.44 L, Free T4 1.01 04/18/25 20:55: VBG pH 7.35, VBG pCO2 44.1, VBG pO2 53.9 H, VBG HCO3 23.7, VBG Total CO2 25.1, VBG O2 Saturation 86.8 H, VBG Base Excess -1.9, VBG Lactic Acid 1.2 04/18/25 20:50 04/18/25 20:50 Orders (Tests/Meds): ED MEDICATIONS Discontinued Medications Generic Name Dose Route Start Last Admin Trade Name Minal PRN Reason Stop Dose Admin Acetaminophen 1,000 mg 04/18/25 20:47 04/18/25 20:59 Acetaminophen 1,000mg/100ml Vial IV 04/18/25 20:48 1,000 mg ONCE ONE Administration ORDERS Category Date Time Status CT angio head Stat Cat Scan 04/18/25 20:[address] angio neck Stat Cat Scan 04/18/25 20:[address] cervical spine wo con Stat Cat Scan 04/18/25 20:[address] head/brain wo con Stat Cat Scan 04/18/25 20:46 Completed CBC w/Auto Diff [Complete Blood Count Auto Diff] Stat Lab 04/18/25 20:50 Completed CMP [Comprehensive Metabolic Panel] Stat Lab 04/18/25 20:50 Completed Free T4 (Free Thyroxine) Stat Lab 04/18/25 20:50 Completed MG [Magnesium] Stat Lab 04/18/25 20:50 Completed TSH [Thyroid Stimulating Hormone] Stat Lab 04/18/25 20:50 Completed VBG [Venous Blood Gas] Stat RT 04/18/25 20:55 Completed ECG Data Tracing #1: Independently interpreted by me rate is 86, rhythm is regular, axis normal, no ST elevation in anatomical contiguous leads, QTc 418, no high degree AV block, no delta wave, no type II Brugada, no dagger Q waves in the lateral leads. Medical Decision Narrative: In summary patient is a 49-year-old female with past medical history described above who presents emergency department for evaluation of traumatic injury sustained in a fall. Patient is hemodynamically stable nontoxic-appearing upon arrival, afebrile. Differential diagnosis includes subdural hematoma, concussion, physical exhaustion, metabolic derangement, among others. Workup will be conducted with hematologic labs, noncontrasted CT scan of the head and cervical spine CT of the head and neck. Initial inventions include IV Tylenol. Initial workup reviewed by me no significant leukocytosis no transfusable anemia no JORDAN or critical electrolyte abnormality compensated acid-base status. Noncontrasted CT scan informally visualized by me, no acute large intra-axial hemorrhage or midline shift. CTA head neck only remarkable for mild mixed calcific atherosclerotic disease of the left carotid bulb with mild stenosis. Upon repeat evaluation patient was resting comfortably in bed and upon awakening her sleep had broken her headache cycle. She underwent p.o. trial with successful was amatory at bedside. Given this I feel that although she likely did pass out this morning it is multifactorial and she does not have any emergent pathology that would warrant admission for continued investigation at this time. She was given instructions how to limit vasovagal presyncope and was instructed not to work tomorrow and to hydrate well. Patient was discharged in stable condition was given return precautions. Critical Care Critical Care Time Critical Care Time: No
--- NOTE | 2025-04-18 20:55 | CT_ITS ---
PROCEDURE INFORMATION: Exam: CT Cervical Spine Without Contrast Exam date and time: 04/18/2025 9:06 PM Age: 49 years old Clinical indication: Injury or trauma; Fall; Blunt trauma TECHNIQUE: Imaging protocol: Computed tomography of the cervical spine without contrast. Radiation optimization: All CT scans at this facility use at least one of these dose optimization techniques: automated exposure control; mA and/or kV adjustment per patient size (includes targeted exams where dose is matched to clinical indication); or iterative reconstruction. COMPARISON: CT CERVICAL SPINE WO CON 04/18/2025 9:06 PM FINDINGS: Bones: No acute fracture. Normal alignment. No significant disc bulge or herniation. No severe spinal canal stenosis. No significant neural foraminal narrowing. Lungs: Lung apices are normal. Soft tissues: Unremarkable. IMPRESSION: No acute cervical spine fracture.
[2025-04-18] MEDS: ACETAMINOPHEN 1,000MG/100ML VIAL 1000 MG IV (20:59)
[2025-04-18 21:01] LABS: Lactate Venous 1.2 mmol/L (0.4-2.0); VBG HCO3 23.7 mmol/L (23-30); VBG PCO2 44.1 mmol/L (35-51); VBG PH 7.35 mmol/L (7.31-7.41); VBG PO2 53.9 mmol/L (28-40)
--- OUTSIDE RECORDS SUMMARY | 2025-04-18 21:03 | XMS_ITS | Clinical Summary ---
Author Organization [facility] Address [address] [place] [address] Phone Care Team Providers Care Ski Top Trimmer Name Role Phone Nonstaff, Referring Primary Care [...] daily. 30 Tablet 11 4 Active Insulin [place], Disposable, (OLIVIER PEN NEEDLE) 32 gauge x [facility] NeedleIndicatio ns:Type 2 diabetes mellitus with hyperglycemia, [...] gain 10/31/2023 Coronary artery disease invo [place]ving [place] coronary artery of [place] heart with angina pectoris 06/21/2023 Severe obesity [...] Diabetes mellitus (HCC) Hypertension Coronary artery disease [facility] 04/04/23 Anxiety disorder High cholesterol Gallstone Adhd [...] ORDERABLES Final R esult Performing Organization Address [facility] Co de Phone Number SEP OFFICE * LIPID SCREEN (06/21/2023 10:01 AM EDT) Cholesterol 143 <200 mg/dL 06/21/2023 11:12 AM EDT [email or web address] Comment: < 200 Desirable 200 - 239 Borderline High >= 240 High Triglyceride 142 <150 mg/dL 06/21/2023 11:12 AM EDT [email or web address] Comment: < 150 Normal 150 - 199 Borderline High 200 - 499 High >= 500 Very High HDL 41 >=40 mg/dL 06/21/2023 11:12 AM EDT [email or web address] Comment: > 60 Optimal 40 - 60 Acceptable < 40 Low LDL Calculated 77 <100 mg/dL 06/21/2023 11:12 AM EDT [email or web address] Comment: < 100 Optimal 100 - 129 Near or above optimal 130 - 159 Borderline High 160 - 189 High >= 190 Very High Non-HDL-C Calculated 102 <=129 mg/dL 06/21/2023 11:12 AM EDT [email or web address] Comment: <130 Desirable 130-159 Above Desirable 160-189 Borderline High 190-219 High >= 220 Very High Fasting Specimen? Yes None 023 11:12 AM EDT [facility] Blood VENOUS BLOOD / Unknown Venipuncture / Unknown 06/21/2023 10:01 AM EDT 06/21/2023 10:14 AM EDT Jerad Beltran DO CHEMISTRY ORDERABLES Fin al Result Performing Organization Address [facility] Co de Phone Number [email or web address] [address] [facility] , [place] [address] [facility] [address] [place] [address] from Last 3 Months or Most Recently Relevant to Health Maintenance Insurance [employer]EN [id number] [employer] [facility] [address] [id number] [employer] LEOLA PHILLIPS [employer] [id number] Advance Directives For more information, please contact: [phone] * Full Code (Latest Code Status on File) Date Activated Date Inactivated Comments 06/20/2023 5:34 PM 06/21/2023 6:31 PM Care Teams Ski Top Trimmer Relationship Specialty Start Date End Date Nonstaff, Referring PCP - General 12/10/23
[2025-04-18 21:23] LABS: Anion Gap 11.7 mEq/L (5-15); Blood Urea Nitrogen 15 mg/dl (7-17); Carbon Dioxide 25 mmol/L (22.0-30.0); Chloride 108 mmol/L (98-107); Creatinine Clearance Estimated 200 mL/min (50-200); Creatinine,Serum 0.50 mg/dl (0.52-1.04); Estimated Glomerular Filt Rate 131 ml/min (>60); GFR (African American) 159 ML/MIN (>60); Glucose 195 mg/dl (74-100); Potassium 3.7 mmoL/L (3.5-5.1); Sodium 141 mmol/L (136-145)
[2025-04-18 21:24] LABS: Alanine Aminotransferase 20 U/L (12-78); Albumin Level 4.2 g/dl (3.5-5.0); Albumin/Globulin Ratio 1.4 (1.1-1.8); Alkaline Phosphatase 107 U/L (38-126); Aspartate Amino Transferase 25 U/L (14-36); Bilirubin,Total 0.7 mg/dl (0.2-1.3); Calcium 9.3 mg/dl (8.4-10.2); Globulin 3.1 g/dL (1.3-3.2); Magnesium 1.9 mg/dl (1.6-2.3); Total Protein,Serum 7.3 g/dl (6.3-8.2)
[2025-04-18 21:36] LABS: Hematocrit 42.1 % (37.0-47.0); Hemoglobin 13.7 g/dL (12.2-16.2); Mean Corpuscular HGB Conc 32.5 g/dL (31.8-35.4); Mean Corpuscular Hemoglobin 28.0 pg (27.0-31.2); Mean Corpuscular Volume 85.9 fl (81-99); Red Blood Count 4.90 M/mm3 (4.20-5.40); Red Cell Distribution Width-SD 44.9 fL; White Blood Count 5.4 K/mm3 (4.8-10.8)
[2025-04-18 21:37] LABS: Free T4 (Free Thyroxine) 1.01 ng/dl (0.78-2.19); Immature Granulocytes % 0.4 %; Nucleated Red Blood Cells % 0 %; Platelet Count 284 K/mm3 (142-424)
[2025-04-18 21:50] LABS: Thyroid Stimulating Hormone 0.44 uIU/mL (0.465-4.68)
== END 2025-04-18 23:48 | disposition home or self-care (01) ==
PROVIDERS: Emergency Provider Emergency Medicine; PCP Family Medicine
DX: R55 Syncope and collapse (principal); R51.9 Headache, unspecified; E78.5 Hyperlipidemia, unspecified; I10 Essential (primary) hypertension; I25.10 Atherosclerotic heart disease of native coronary artery without angina pectoris; E11.9 Type 2 diabetes mellitus without complications
CPT/HCPCS: 70450; 70496; 70498; 72125; 80053; 82803; 83735; 84439; 84443; 85025; 93005; 96374; 99285; J0131

== ENCOUNTER 2025-04-24 20:08 | Observation (INO) | payer OTHER, SELFPAY ==
[2025-04-24] VITALS (9 sets, daily range): BP systolic 122–170; BP diastolic 69–105; PULSE 79–94; RESP 11–20; TEMP 36.7; O2SAT 96–98; BMI 39.0
--- NOTE | 2025-04-24 20:13 | ECG_ITS ---
APPROVED REPORT Exam: Resting ECG HR:90 bpm ECG Measurements Heart Rate 90 AXES MI 159 P 48 QRSd 101 QRS 12 QT 376 T 55 QTc 424 Conclusion SINUS RHYTHM LOW QRS VOLTAGE IN PRECORDIAL LEADS [QRS DEFLECTION < 1.0 mV IN CHEST LEADS] BORDERLINE ECG Electronically signed by : MIRANDA RODAS, 04/25/2025 07:25:22
--- NOTE | 2025-04-24 20:28 | XR_ITS ---
PROCEDURE INFORMATION: Exam: XR Chest Exam date and time: 04/24/2025 8:39 PM Age: 49 years old Clinical indication: Shortness of breath; Additional info: Soa/cp TECHNIQUE: Imaging protocol: Radiologic exam of the chest. Views: 1 view. COMPARISON: CT ANGIO NECK 04/18/2025 9:08 PM FINDINGS: Lungs: Unremarkable. No consolidation. Pleural spaces: Unremarkable. No pleural effusion. No pneumothorax. Heart/Mediastinum: Unremarkable. No cardiomegaly. Bones/joints: Unremarkable. IMPRESSION: No acute findings.
[2025-04-24 20:34] LABS: Hematocrit 40.6 % (37.0-47.0); Hemoglobin 13.6 g/dL (12.2-16.2); Immature Granulocytes % 0.2 %; Mean Corpuscular HGB Conc 33.5 g/dL (31.8-35.4); Mean Corpuscular Hemoglobin 28.8 pg (27.0-31.2); Mean Corpuscular Volume 85.8 fl (81-99); Nucleated Red Blood Cells % 0 %; Platelet Count 294 K/mm3 (142-424); Red Blood Count 4.73 M/mm3 (4.20-5.40); Red Cell Distribution Width-SD 44.4 fL; White Blood Count 5.5 K/mm3 (4.8-10.8)
[2025-04-24 20:36] LABS: Albumin Level 4.6 g/dl (3.5-5.0); Chloride 101 mmol/L (98-107); Sodium 137 mmol/L (136-145)
[2025-04-24 20:37] LABS: Potassium 3.4 mmoL/L (3.5-5.1)
--- NOTE | 2025-04-24 20:38 | ED_ITS ---
Discharge Plan Disposition Patient Disposition: Admitted Condition: Fair Prescriptions Prescriptions: No Action Brilinta 90 mg tablet PO Patient Comments: TAKE 1 TABLET BY MOUTH TWICE DAILY rosuvastatin 40 mg tablet PO Patient Comments: TAKE 1 TABLET BY MOUTH ONCE DAILY isosorbide dinitrate 30 mg tablet 30 mg PO BID Qty: 180 3RF Rx Instructions: allow nitrate-free interval of 12-14 hrs per 24-hr period magnesium aspart,citrate,oxide 400 mg magnesium capsule 400 mg PO DAILY Qty: 90 3RF carvedilol [Coreg] 12.5 mg tablet 12.5 mg PO BID Qty: 180 3RF Rx Instructions: must administer with a meal/food pantoprazole 40 mg tablet,delayed release (DR/EC) 40 mg PO ONCE Qty: 90 3RF propranolol 10 mg tablet 10 mg PO ONCE Qty: 90 3RF furosemide 20 mg tablet 20 mg PO ONCE Qty: 90 3RF Mounjaro 2.5 mg/0.5 mL pen injector 0RF lisdexamfetamine [Vyvanse] 50 mg capsule 50 mg PO DAILY Qty: 30 0RF Rx Instructions: morning Mounjaro 2.5 mg/0.5 mL pen injector 2.5 mg SQ WEEKLY Qty: 2 12RF Rx Instructions: for 4 weeks nitroglycerin 0.4 mg tablet, sublingual 0.4 mg sublingual Q5-15M PRN (Reason: chest pain) Qty: 20 12RF Rx Instructions: do not exceed 3 doses per episode lisdexamfetamine [Vyvanse] 10 mg capsule 10 mg PO DAILY Qty: 30 0RF Rx Instructions: afternoon (DME) pen needle, diabetic [Comfort EZ Pen [place]] 31 gauge x 1/4 needle See Rx Instructions .Route Qty: 200 12RF Rx Instructions: As directed (DME) FreeStyle [place] 3 [place] Misc See Rx Instructions .Route Qty: 1 0RF Rx Instructions: As directed fenofibrate nanocrystallized 145 mg tablet 145 mg PO ONCE Qty: 90 3RF Mounjaro 7.5 mg/0.5 mL pen injector 7.5 mg SQ WEEKLY Qty: 2 3RF (DME) FreeStyle [place] 3 Plus Sensor Device See Rx Instructions .Route Qty: 3 10RF Rx Instructions: As directed ergocalciferol (vitamin D2) 1,250 mcg (50,000 unit) capsule 2,500 mcg PO QWEEK Qty: 14 12RF Xarelto 2.5 mg tablet 2.5 mg PO BID Qty: 60 3RF hydroxyzine HCl 25 mg tablet 25 mg PO BID Qty: 180 3RF losartan 25 mg tablet 25 mg PO DAILY Qty: 90 3RF Repatha SureClick 140 mg/mL pen injector 140 mg SQ Q2W Qty: 2 10RF insulin glargine [Basaglar KwikPen U-100 Insulin] 100 unit/mL (3 mL) insulin pen 100 unit SQ HS Qty: 15 10RF Fiasp FlexTouch U-100 Insulin 100 unit/mL (3 mL) insulin pen 1 sliding scale dose SQ USEASDIRECTD Qty: 15 12RF Rx Instructions: per sliding scale maximum 150 units/day Referrals Follow up/Referrals: Jc Glover MD [Staff Physician, General Surgery] - See instructions Joseph Arevalo MD [Staff Physician, Cardiology] - See instructions Provider,MD Bobby [Primary Care Provider, Medical] - See instructions Gene Beard MD [Staff Physician, General Surgery] - See instructions Clinical Impressions Clinical Impression: Chest pain, Gallstones Print Language Print Language: [place] Discharge ED Provider: Connie Weiner HPI <TIFFANY Watt - Last Filed: 04/24/25 22:15> General Chief Complaint: Chest Pain Stated Complaint: Chest Pain Time Seen by Provider: 04/24/25 20:11 Mode of Arrival: EMS Source of Information: Patient and EMS Description of Symptoms (Recalled from ER Triage Doc. by RN): patient c/o chest pain that started around 1500 today. patient has cardiac history. describes pain as pressure. History of Present Illness HPI narrative: 49-year-old female presents emergency department with chest pain that started around 3 or 3:30 PM today, there is left-sided substernal, radiating down the arm and up to the neck, with some radiation into her back, and abdomen, located on the mid epigastric region, patient has a significant past medical history consistent with CAD, status post 15 stents, follows with cardiology, she is on dual endplate therapy with Brilinta and aspirin, as well as anticoagulation therapy with Xarelto, patient has taken a total of 4 nitroglycerin today, and a full aspirin, with little no relief or symptomatology, when the pain for started is a 3 out of 4 out of 10, currently a 5 out of 10, she admits to some nausea denies any shortness of breath, denies any fever chills cough congestion denies any headache, does admit to lightheadedness, at times, denies any real abdominal pain, no constipation no diarrhea no urinary test pathology, other past medical history consistent with ADHD, type 2 diabetes, hyperlipidemia, hypertension, of note patient tells me that she has gallstones ,. Initial triage vitals are unremarkable, denies any tobacco alcohol or drug use, patient states of note 1 week ago she had some episodes of lightheadedness, dizziness, and what sounds like hypoglycemia , with blood glucose readings according to her Dexcom around the 20s and 30s. Please note that above description of symptoms, in this electronic medical record under categorization of recalled from ER triage doctor by RN are reflective of an initial nursing assessment, however, is not reflective of my full history and physical exam that was personally taken and clarified. Consequentially, this preceding description of symptoms, which may include the patient's categorized chief complaint in the EMR, do not reflect my personal clinical impression, and the ultimate description of history of present illness and patient stated complaints should be deferred to this section of the note. Unless stated otherwise or congruent with this section of the note, additional signs, symptoms, or incongruence should be interpreted as inaccurate with my clinical impression. MD complaint: chest pain Onset (ago): hour(s) Time: 15:30 Related Data Home Medications ?Medication ?Instructions ?Recorded ?Confirmed rosuvastatin 40 mg tablet mg PO 11/18/24 04/05/25 ticagrelor 90 mg tablet (Brilinta) mg PO 11/18/2404/23 Previous Rx's ?Medication ?Instructions ?Recorded carvedilol 12.5 mg tablet (Coreg) 12.5 mg PO BID #180 tabs 11/18/24 isosorbide dinitrate 30 mg tablet 30 mg PO BID #180 ta bs 11/18/24 magnesium aspart,citrate,oxide 400 mg PO DAILY #90 cap s 11/18/24 pantoprazole 40 mg tablet,delayed 40 mg PO ONCE #90 ta bs 11/18/24 release propranolol 10 mg tablet 10 mg PO ONCE #90 tabs 11/18 blood-glucose,marketing campaign analyst,cont #1 ea 11/20/24 (FreeStyle [place] 3 [place]) pen needle, diabetic 31 gauge x #200 ea 11/20/24/ (Comfort EZ Pen [place]) furosemide 20 mg tablet 20 mg PO ONCE #90 tabs 12/16 fenofibrate nanocrystallized 145 145 mg PO ONCE #90 ta bs 01/11/25 mg tablet tirzepatide 7.5 mg/0.5 mL 7.5 mg (0.5 mL) SQ WEEKLY #2 mL 01/18/25 subcutaneous pen injector (Mounjaro) blood-glucose sensor (FreeStyle #3 ea 03/05/25 [place] 3 Plus Sensor device) ergocalciferol (vitamin D2) 1,250 2,500 mcg (2 x 1,250 mcg (50,000 03/05/25 mcg (50,000 unit) capsule unit)) PO QWEEK #14 caps evolocumab 140 mg/mL subcutaneous 140 mg SQ Q2W #2 mL 03/05/25 pen injector (Angel Ji) hydroxyzine HCl 25 mg tablet 25 mg PO BID #180 tabs losartan 25 mg tablet 25 mg PO DAILY #90 tabs 03/24 rivaroxaban 2.5 mg tablet (Xarelto) 2.5 mg PO BID #60 tabs 03/05/25 lisdexamfetamine 50 mg capsule 50 mg PO DAILY #30 caps 04/05/25 (Vyvanse) nitroglycerin 0.4 mg sublingual 0.4 mg sublingual Q5-1 5M PRN chest 04/05/25 tablet pain #20 tabs tirzepatide 2.5 mg/0.5 mL 2.5 mg (0.5 mL) SQ WEEKLY #2 mL 04/05/25 subcutaneous pen injector (Mounjaro) lisdexamfetamine 10 mg capsule 10 mg PO DAILY #30 caps 04/12/25 (Vyvanse) Basaglar KwikPen U-100 Insulin 100 100 unit SQ HS #15 mL 04/15/25 unit/mL (3 mL) subcutaneous (insulin glargine) Fiasp FlexTouch U-100 Insulin 100 1 sliding scale dose SQ 04/16/25 unit/mL (3 mL) subcutaneous pen USEASDIRECTD #15 mL (insulin aspart (niacinamide)) Allergies Allergy/AdvReac Type Severity Reaction Status Date / Time ondansetron (From Zofran) Allergy Severe Anaphylaxis Verified 04/05/25 13:33 Penicillins Allergy Mild Rash Verified 04/05/25 13:33 semaglutide (From Ozempic) Allergy Mild Vomiting Verified 04/05/25 13:33 Steroid Allergy Allergy Mild Agitated Uncoded 04/05/25 13:33 PFSH <TIFFANY Watt - Last Filed: 04/24/25 22:15> [facility] Disclaimer: The information contained in this section may have been updated after the patient was seen, as this information can be updated by other users. Medical History Uterine adhesions delivery delivered STEMI (ST elevation myocardial infarction) Anxiety Hyperlipemia Hypertension Diabetes ADHD Surgical History H/O right wrist surgery H/O heart artery stent Social History (Updated 04/05/25 @ 13:35 by Cristina Crowder MA) Smoking Status: Never smoker alcohol intake: never current occupational status: employed Travel in the last 8 weeks?: None Have you lived/traveled outside [place] in past 30 days?: No Contact w/someone who lives/traveled outside US past 30 days?: No Exposure to someone with infectious disease in past 14 days?: No Do you have a fever (greater than 100.4 F or 38 C)?: No Have you tested positive for COVID-19?: No Exposed to someone with COVID-19 in past 14 days?: No Do you have a sore throat?: No Do you have a cough?: No Do you have any weakness?: No Do you have any diarrhea?: No Are you experiencing any unusual bleeding?: No Do you have any muscle aches/pain?: No Do you have any abdominal pain?: No Are you experiencing loss of taste or smell?: No <TIFFANY Watt - Last Filed: 04/24/25 22:15> ROS Obtained: Yes All systems reviewed & no additional complaints except as documented Physical Exam <TIFFANY Watt - Last Filed: 04/24/25 22:15> General General appearance: alert and in no apparent distress Head Head exam: atraumatic and normocephalic Eye Eye exam: Present normal appearance, PERRL and EOMI Neck Neck exam: Present full ROM; Absent meningismus Chest Chest inspection: Present normal inspection Respiratory Respiratory exam: Absent respiratory distress, wheezes, stridor, accessory muscle use or prolonged expiratory phase Cardiovascular Cardiovascular exam: Present normal rhythm and other (Pulses equal and symmetric in bilateral upper and lower extremities) Abdominal Exam Abdominal exam: Present tenderness and Siddiqui's sign; Absent distention, guarding or rebound Abdominal tenderness: Present mild Extremities Exam Extremities exam: Absent edema Neurological Exam Neurological exam: Present alert Psychiatric Psychiatric exam: Present normal affect Skin Skin exam: Present warm and dry HEART Score <TIFFANY Watt - Last Filed: 04/24/25 22:15> HEART Score HEART Score assessment performed?: No Critical Care <TIFFANY Watt - Last Filed: 04/24/25 22:15> Critical Care Time Critical Care Time: No Medical Decision Making <TIFFANY Watt - Last Filed: 04/24/25 22:15> Medical Records Medical records reviewed: Yes I reviewed the patient's medical records. Geovanny Inquiry Pt receiving controlled substance: Yes Geovanny was queried for this patient: No Reason not queried -: Emergent pt cond-no time Risks and benefits of using a controlled substance: were discussed with pt by me Vital Signs Vital Signs: 04/24/25 20:14 04/24/25 20:19 04/24/25 20:30 Temperature 98.1 F Temperature Source Oral Pulse Rate 94 H 91 H Pulse Rate [Left] 94 H Respiratory Rate 20 17 Blood Pressure 170/105 H Blood Pressure [Right Arm] 166/90 H Blood Pressure Mean [Right Arm] 115 Blood Pressure Source [Right Arm] Automatic Cuff Blood Pressure Position [Right Arm] Sitting 02 Sat by Pulse Oximetry 98 96 Oxygen Delivery Method Room Air 04/24/25 21:00 04/24/25 21:30 04/24/25 22:00 Temperature Temperature Source Pulse Rate 89 88 79 Pulse Rate [Left] Respiratory Rate 16 16 15 Blood Pressure 162/100 H 153/100 H 122/69 Blood Pressure [Right Arm] Blood Pressure Mean [Right Arm] Blood Pressure Source [Right Arm] Blood Pressure Position [Right Arm] 02 Sat by Pulse Oximetry 96 97 96 Oxygen Delivery Method 04/24/25 22:30 04/24/25 23:00 04/24/25 23:30 Temperature Temperature Source Pulse Rate Pulse Rate [Left] Respiratory Rate 16 11 L 18 Blood Pressure 131/77 130/76 144/74 H Blood Pressure [Right Arm] Blood Pressure Mean [Right Arm] Blood Pressure Source [Right Arm] Blood Pressure Position [Right Arm] 02 Sat by Pulse Oximetry Oxygen Delivery Method 04/25/25 00:01 04/25/25 00:30 Temperature Temperature Source Pulse Rate Pulse Rate [Left] Respiratory Rate 17 13 Blood Pressure 167/98 H 161/98 H Blood Pressure [Right Arm] Blood Pressure Mean [Right Arm] Blood Pressure Source [Right Arm] Blood Pressure Position [Right Arm] 02 Sat by Pulse Oximetry Oxygen Delivery Method Lab Data Lab results reviewed: Yes I reviewed the patient's lab results. Labs: Lab Results 04/24/25 20:12: WBC 5.5, RBC 4.73, Hgb 13.6, Hct 40.6, MCV 85.8, MCH 28.8, MCHC 33.5, RDW 14.2, Plt Count 294, MPV 8.9, Neut % (Auto) 60.5, Lymph % (Auto) 28.8, [place] % (Auto) 7.2, Eos % (Auto) 2.6, Baso % (Auto) 0.7, Neut # (Auto) 3.3, Lymph # (Auto) 1.6, [place] # (Auto) 0.4, Eos # (Auto) 0.1, Baso # (Auto) 0.0, PT 11.3, INR 1.02, Sodium 137, Potassium 3.4 L, Chloride 101, Carbon Dioxide 31 H, Anion Gap 8.4, BUN 18 H, Creatinine 0.50 L, Estimated Creat Clear 195, Estimated GFR 131, Est GFR ( Amer) 159, Glucose 154 H, Calcium 9.9, Magnesium 1.8, Total Bilirubin 0.5, AST 38 H, ALT 25, Alkaline Phosphatase 82, Troponin I < 0.01, NT-Pro-B Natriuret Pep < 20.0, Total Protein 8.0, Albumin 4.6, Globulin 3.4 H, Albumin/Globulin Ratio 1.4, Lipase 162, Serum HCG, Qual Negative 04/24/25 22:27: Troponin I < 0.01 04/25/25 00:25: D-Dimer 0.51 H 04/24/25 20:12 04/24/25 20:12 Response Orders (Tests/Meds): ED MEDICATIONS Generic Name Dose Route Start Last Admin Trade Name Minal PRN Reason Stop Dose Admin Sodium Chloride 10 ml 04/24/25 22:11 04/24/25 22:15 Sodium Chloride 0.9% 10ml Syr (Rad Only) IV 05/24/25 22:10 10 ml NEEDED PRN Administration Maintain IV Site Discontinued Medications Generic Name Dose Route Start Last Admin Trade Name Minal PRN Reason Stop Dose Admin Acetaminophen 1,000 mg 04/25/25 00:03 04/25/25 00:22 Acetaminophen 500mg Tab PO 04/25/25 00:04 1,000 mg ONCE ONE Administration Belladonna Alkaloids 60 ml 04/25/25 00:03 04/25/25 00:22 Belladonna Alkaloids 60 Ml Ml PO 04/25/25 00:04 60 ml ONCE ONE Administration Hydromorphone HCl 0.5 mg 04/24/25 20:37 04/24/25 20:48 Hydromorphone 2mg/Ml Syringe IV 04/24/25 20:38 0.5 mg ONCE ONE Administration Iopamidol 75 ml 04/24/25 22:11 04/24/25 22:16 Iopamidol-370 (76%);100ml Bottle IV 04/24/25 22:12 75 ml ONCE ONE Administration ORDERS Category Date Time Status CT abdomen pelvis w con Stat Cat Scan 04/24/25 21:48 Completed XR chest portable Stat Exams 04/24/25 20:28 Completed Complete Blood Count Auto Diff Stat Lab 04/24/25 20:12 Completed Comprehensive Metabolic Panel Stat Lab 04/24/25 20:12 Completed D-Dimer Stat Lab 04/25/25 00:25 Completed HCG Qualitative, Serum Stat Lab 04/24/25 20:12 Completed Lipase Stat Lab 04/24/25 20:12 Completed Magnesium Stat Lab 04/24/25 20:12 Completed NT Pro Brain Natriuretic Pep. Stat Lab 04/24/25 20:12 Completed PT INR [Prothrombin Time INR] Stat Lab 04/24/25 20:12 Completed Troponin I Q3H Lab 04/24/25 22:27 Completed Troponin I Q3H Lab 04/25/25 02:30 Ordered Troponin I Stat Lab 04/24/25 20:12 Completed MDM Narrative Medical Decision Narrative: 49-year-old female presents emergency department with chest pain, differential diagnose include but not limited to, ACS, cardiac arrhythmia, electrolyte disturbance, anxiety reaction, panic attack, gastritis, GERD, pancreatitis, pneumonia, cholecystitis, cholelithiasis, choledocholithiasis among others. Will obtain basic, laboratory studies, coagulation studies, troponin, proBNP, chest x-ray, EKG, magnesium level, lipase level, hCG qualitative, obtain CT abd pelvis with contrast for further evaluation as characterization. CBC unremarkable Coags within normal limits CMP is notable for minimal hypokalemia at 3.4, minimal BUN elevation 18, initial troponin is normal at less than 0.01, hCG negative Lipase within the normal limits I reviewed the patient's chest x-ray along the corresponding radiologic report, no acute findings. I discussed this case with attending physician Dr. Weiner at shift change, she will be assuming remainder the patient's care/workup, disposition is pending radiology report for CT abdomen pelvis as well as repeat troponin <Connie Weiner, DO - Last Filed: 04/25/25 00:23> Vital Signs Vital Signs: 04/24/25 20:14 04/24/25 20:19 04/24/25 20:30 Temperature 98.1 F Temperature Source Oral Pulse Rate 94 H 91 H Pulse Rate [Left] 94 H Respiratory Rate 20 17 Blood Pressure 170/105 H Blood Pressure [Right Arm] 166/90 H Blood Pressure Mean [Right Arm] 115 Blood Pressure Source [Right Arm] Automatic Cuff Blood Pressure Position [Right Arm] Sitting 02 Sat by Pulse Oximetry 98 96 Oxygen Delivery Method Room Air 04/24/25 21:00 04/24/25 21:30 04/24/25 22:00 Temperature Temperature Source Pulse Rate 89 88 79 Pulse Rate [Left] Respiratory Rate 16 16 15 Blood Pressure 162/100 H 153/100 H 122/69 Blood Pressure [Right Arm] Blood Pressure Mean [Right Arm] Blood Pressure Source [Right Arm] Blood Pressure Position [Right Arm] 02 Sat by Pulse Oximetry 96 97 96 Oxygen Delivery Method 04/24/25 22:30 04/24/25 23:00 04/24/25 23:30 Temperature Temperature Source Pulse Rate Pulse Rate [Left] Respiratory Rate 16 11 L 18 Blood Pressure 131/77 130/76 144/74 H Blood Pressure [Right Arm] Blood Pressure Mean [Right Arm] Blood Pressure Source [Right Arm] Blood Pressure Position [Right Arm] 02 Sat by Pulse Oximetry Oxygen Delivery Method 04/25/25 00:01 04/25/25 00:30 Temperature Temperature Source Pulse Rate Pulse Rate [Left] Respiratory Rate 17 13 Blood Pressure 167/98 H 161/98 H Blood Pressure [Right Arm] Blood Pressure Mean [Right Arm] Blood Pressure Source [Right Arm] Blood Pressure Position [Right Arm] 02 Sat by Pulse Oximetry Oxygen Delivery Method Lab Data Labs: Lab Results 04/24/25 20:12: WBC 5.5, RBC 4.73, Hgb 13.6, Hct 40.6, MCV 85.8, MCH 28.8, MCHC 33.5, RDW 14.2, Plt Count 294, MPV 8.9, Neut % (Auto) 60.5, Lymph % (Auto) 28.8, [place] % (Auto) 7.2, Eos % (Auto) 2.6, Baso % (Auto) 0.7, Neut # (Auto) 3.3, Lymph # (Auto) 1.6, [place] # (Auto) 0.4, Eos # (Auto) 0.1, Baso # (Auto) 0.0, PT 11.3, INR 1.02, Sodium 137, Potassium 3.4 L, Chloride 101, Carbon Dioxide 31 H, Anion Gap 8.4, BUN 18 H, Creatinine 0.50 L, Estimated Creat Clear 195, Estimated GFR 131, Est GFR ( Amer) 159, Glucose 154 H, Calcium 9.9, Magnesium 1.8, Total Bilirubin 0.5, AST 38 H, ALT 25, Alkaline Phosphatase 82, Troponin I < 0.01, NT-Pro-B Natriuret Pep < 20.0, Total Protein 8.0, Albumin 4.6, Globulin 3.4 H, Albumin/Globulin Ratio 1.4, Lipase 162, Serum HCG, Qual Negative 04/24/25 22:27: Troponin I < 0.01 04/25/25 00:25: D-Dimer 0.51 H Response Orders (Tests/Meds): ED MEDICATIONS Generic Name Dose Route Start Last Admin Trade Name Freq PRN Reason Stop Dose Admin Sodium Chloride 10 ml 04/24/25 22:11 04/24/25 22:15 Sodium Chloride 0.9% 10ml Syr (Rad Only) IV 05/24/25 22:10 10 ml NEEDED PRN Administration Maintain IV Site Discontinued Medications Generic Name Dose Route Start Last Admin Trade Name Minal PRN Reason Stop Dose Admin Acetaminophen 1,000 mg 04/25/25 00:03 04/25/25 00:22 Acetaminophen 500mg Tab PO 04/25/25 00:04 1,000 mg ONCE ONE Administration Belladonna Alkaloids 60 ml 04/25/25 00:03 04/25/25 00:22 Belladonna Alkaloids 60 Ml Ml PO 04/25/25 00:04 60 ml ONCE ONE Administration Hydromorphone HCl 0.5 mg 04/24/25 20:37 04/24/25 20:48 Hydromorphone 2mg/Ml Syringe IV 04/24/25 20:38 0.5 mg ONCE ONE Administration Iopamidol 75 ml 04/24/25 22:11 04/24/25 22:16 Iopamidol-370 (76%);100ml Bottle IV 04/24/25 22:12 75 ml ONCE ONE Administration ORDERS Category Date Time Status CT abdomen pelvis w con Stat Cat Scan 04/24/25 21:48 Completed XR chest portable Stat Exams 04/24/25 20:28 Completed Complete Blood Count Auto Diff Stat Lab 04/24/25 20:12 Completed Comprehensive Metabolic Panel Stat Lab 04/24/25 20:12 Completed D-Dimer Stat Lab 04/25/25 00:25 Completed HCG Qualitative, Serum Stat Lab 04/24/25 20:12 Completed Lipase Stat Lab 04/24/25 20:12 Completed Magnesium Stat Lab 04/24/25 20:12 Completed NT Pro Brain Natriuretic Pep. Stat Lab 04/24/25 20:12 Completed PT INR [Prothrombin Time INR] Stat Lab 04/24/25 20:12 Completed Troponin I Q3H Lab 04/24/25 22:27 Completed Troponin I Q3H Lab 04/25/25 02:30 Ordered Troponin I Stat Lab 04/24/25 20:12 Completed ECG Data Tracing #1: Attestation: I reviewed this ECG and interpreted as documented below: ECG Narrative: Sinus rhythm with a ventricular rate of [address] changes concerning for STEMI. Normal intervals ECG initial impression date: 04/24/25 ECG initial impression time: 20:15 MDM Narrative Medical Decision Narrative: 49-year-old female presents emergency department with chest pain, differential diagnose include but not limited to, ACS, cardiac arrhythmia, electrolyte disturbance, anxiety reaction, panic attack, gastritis, GERD, pancreatitis, pneumonia, cholecystitis, cholelithiasis, choledocholithiasis among others. Will obtain basic, laboratory studies, coagulation studies, troponin, proBNP, chest x-ray, EKG, magnesium level, lipase level, hCG qualitative, obtain CT abd pelvis with contrast for further evaluation as characterization. CBC unremarkable Coags within normal limits CMP is notable for minimal hypokalemia at 3.4, minimal BUN elevation 18, initial troponin is normal at less than 0.01, hCG negative Lipase within the normal limits I reviewed the patient's chest x-ray along the corresponding radiologic report, no acute findings. I discussed this case with attending physician Dr. Weiner at shift change, she will be assuming remainder the patient's care/workup, disposition is pending radiology report for CT abdomen pelvis as well as repeat troponin DO Husam: I was consulted by the JOSE, and we discussed the complexity of the problems being addressed. I approved the treatment and management plan for this patient's care in the emergency department, thus performing a substantive portion of the medical decision making. Labs obtained are reassuring with negative troponins x 2, patient has very mild elevation in AST but otherwise liver enzymes are reassuring. No significant leukocytosis or anemia. CT scan shows gallstones on my independent interpretation but no findings concerning for cholecystitis. Please radiology for final interpretation. On reassessment, vitals are reassuring on cardiac telemetry, but the patient continues to have pain. She does not feel comfortable with discharge given cardiac history requiring multiple stents in the past, stating that she was told last time that she may need a CABG. I had an interactive discussion with Dr. Arevalo who recommended admission for possible cath on Saturday versus very close follow-up outpatient. Patient feels more comfortable with admission. I then had an interactive discussion with the hospitalist who recommended trial of a GI cocktail as well as obtaining a D-dimer. Trial of this and D-dimer pending at time of signout to oncoming provider, Dr. Yoon. Connie Weiner DO <Berto Yoon MD - Last Filed: 04/25/25 01:37> Vital Signs Vital Signs: 04/24/25 20:14 04/24/25 20:19 04/24/25 20:30 Temperature 98.1 F Temperature Source Oral Pulse Rate 94 H 91 H Pulse Rate [Left] 94 H Respiratory Rate 20 17 Blood Pressure 170/105 H Blood Pressure [Right Arm] 166/90 H Blood Pressure Mean [Right Arm] 115 Blood Pressure Source [Right Arm] Automatic Cuff Blood Pressure Position [Right Arm] Sitting 02 Sat by Pulse Oximetry 98 96 Oxygen Delivery Method Room Air 04/24/25 21:00 04/24/25 21:30 04/24/25 22:00 Temperature Temperature Source Pulse Rate 89 88 79 Pulse Rate [Left] Respiratory Rate 16 16 15 Blood Pressure 162/100 H 153/100 H 122/69 Blood Pressure [Right Arm] Blood Pressure Mean [Right Arm] Blood Pressure Source [Right Arm] Blood Pressure Position [Right Arm] 02 Sat by Pulse Oximetry 96 97 96 Oxygen Delivery Method 04/24/25 22:30 04/24/25 23:00 04/24/25 23:30 Temperature Temperature Source Pulse Rate Pulse Rate [Left] Respiratory Rate 16 11 L 18 Blood Pressure 131/77 130/76 144/74 H Blood Pressure [Right Arm] Blood Pressure Mean [Right Arm] Blood Pressure Source [Right Arm] Blood Pressure Position [Right Arm] 02 Sat by Pulse Oximetry Oxygen Delivery Method 04/25/25 00:01 04/25/25 00:30 Temperature Temperature Source Pulse Rate Pulse Rate [Left] Respiratory Rate 17 13 Blood Pressure 167/98 H 161/98 H Blood Pressure [Right Arm] Blood Pressure Mean [Right Arm] Blood Pressure Source [Right Arm] Blood Pressure Position [Right Arm] 02 Sat by Pulse Oximetry Oxygen Delivery Method Lab Data Labs: Lab Results 04/24/25 20:12: WBC 5.5, RBC 4.73, Hgb 13.6, Hct 40.6, MCV 85.8, MCH 28.8, MCHC 33.5, RDW 14.2, Plt Count 294, MPV 8.9, Neut % (Auto) 60.5, Lymph % (Auto) 28.8, [place] % (Auto) 7.2, Eos % (Auto) 2.6, Baso % (Auto) 0.7, Neut # (Auto) 3.3, Lymph # (Auto) 1.6, [place] # (Auto) 0.4, Eos # (Auto) 0.1, Baso # (Auto) 0.0, PT 11.3, INR 1.02, Sodium 137, Potassium 3.4 L, Chloride 101, Carbon Dioxide 31 H, Anion Gap 8.4, BUN 18 H, Creatinine 0.50 L, Estimated Creat Clear 195, Estimated GFR 131, Est GFR ( Amer) 159, Glucose 154 H, Calcium 9.9, Magnesium 1.8, Total Bilirubin 0.5, AST 38 H, ALT 25, Alkaline Phosphatase 82, Troponin I < 0.01, NT-Pro-B Natriuret Pep < 20.0, Total Protein 8.0, Albumin 4.6, Globulin 3.4 H, Albumin/Globulin Ratio 1.4, Lipase 162, Serum HCG, Qual Negative 04/24/25 22:27: Troponin I < 0.01 04/25/25 00:25: D-Dimer 0.51 H Response Orders (Tests/Meds): ED MEDICATIONS Generic Name Dose Route Start Last Admin Trade Name Freq PRN Reason Stop Dose Admin Sodium Chloride 10 ml 04/24/25 22:11 04/24/25 22:15 Sodium Chloride 0.9% 10ml Syr (Rad Only) IV 05/24/25 22:10 10 ml NEEDED PRN Administration Maintain IV Site Discontinued Medications Generic Name Dose Route Start Last Admin Trade Name Freq PRN Reason Stop Dose Admin Acetaminophen 1,000 mg 04/25/25 00:03 04/25/25 00:22 Acetaminophen 500mg Tab PO 04/25/25 00:04 1,000 mg ONCE ONE Administration Belladonna Alkaloids 60 ml 04/25/25 00:03 04/25/25 00:22 Belladonna Alkaloids 60 Ml Ml PO 04/25/25 00:04 60 ml ONCE ONE Administration Hydromorphone HCl 0.5 mg 04/24/25 20:37 04/24/25 20:48 Hydromorphone 2mg/Ml Syringe IV 04/24/25 20:38 0.5 mg ONCE ONE Administration Iopamidol 75 ml 04/24/25 22:11 04/24/25 22:16 Iopamidol-370 (76%);100ml Bottle IV 04/24/25 22:12 75 ml ONCE ONE Administration ORDERS Category Date Time Status CT abdomen pelvis w con Stat Cat Scan 04/24/25 21:48 Completed XR chest portable Stat Exams 04/24/25 20:28 Completed Complete Blood Count Auto Diff Stat Lab 04/24/25 20:12 Completed Comprehensive Metabolic Panel Stat Lab 04/24/25 20:12 Completed D-Dimer Stat Lab 04/25/25 00:25 Completed HCG Qualitative, Serum Stat Lab 04/24/25 20:12 Completed Lipase Stat Lab 04/24/25 20:12 Completed Magnesium Stat Lab 04/24/25 20:12 Completed NT Pro Brain Natriuretic Pep. Stat Lab 04/24/25 20:12 Completed PT INR [Prothrombin Time INR] Stat Lab 04/24/25 20:12 Completed Troponin I Q3H Lab 04/24/25 22:27 Completed Troponin I Q3H Lab 04/25/25 02:30 Ordered Troponin I Stat Lab 04/24/25 20:12 Completed MDM Narrative Medical Decision Narrative: 49-year-old female presents emergency department with chest pain, differential diagnose include but not limited to, ACS, cardiac arrhythmia, electrolyte disturbance, anxiety reaction, panic attack, gastritis, GERD, pancreatitis, pneumonia, cholecystitis, cholelithiasis, choledocholithiasis among others. Will obtain basic, laboratory studies, coagulation studies, troponin, proBNP, chest x-ray, EKG, magnesium level, lipase level, hCG qualitative, obtain CT abd pelvis with contrast for further evaluation as characterization. CBC unremarkable Coags within normal limits CMP is notable for minimal hypokalemia at 3.4, minimal BUN elevation 18, initial troponin is normal at less than 0.01, hCG negative Lipase within the normal limits I reviewed the patient's chest x-ray along the corresponding radiologic report, no acute findings. I discussed this case with attending physician Dr. Weiner at shift change, she will be assuming remainder the patient's care/workup, disposition is pending radiology report for CT abdomen pelvis as well as repeat troponin Husam, DO: I was consulted by the JOSE, and we discussed the complexity of the problems being addressed. I approved the treatment and management plan for this patient's care in the emergency department, thus performing a substantive portion of the medical decision making. Labs obtained are reassuring with negative troponins x 2, patient has very mild elevation in AST but otherwise liver enzymes are reassuring. No significant leukocytosis or anemia. CT scan shows gallstones on my independent interpretation but no findings concerning for cholecystitis. Please radiology for final interpretation. On reassessment, vitals are reassuring on cardiac telemetry, but the patient continues to have pain. She does not feel comfortable with discharge given cardiac history requiring multiple stents in the past, stating that she was told last time that she may need a CABG. I had an interactive discussion with Dr. Arevalo who recommended admission for possible cath on Saturday versus very close follow-up outpatient. Patient feels more comfortable with admission. I then had an interactive discussion with the hospitalist who recommended trial of a GI cocktail as well as obtaining a D-dimer. Trial of this and D-dimer pending at time of signout to oncoming provider, Dr. Yoon. DO Karrie Dejesus MD: I assumed care of the patient at the time of handoff from the prior provider. On reassessment patient nahed hemodynamically stable. Denies any improvement with the GI cocktail. D-dimer returns at 0.51, negative by years criteria. Interactive discussion was had with hospitalist on-call and patient was admitted for further workup.
[2025-04-24 20:39] LABS: Alanine Aminotransferase 25 U/L (12-78); Anion Gap 8.4 mEq/L (5-15); Aspartate Amino Transferase 38 U/L (14-36); Blood Urea Nitrogen 18 mg/dl (7-17); Carbon Dioxide 31 mmol/L (22.0-30.0); Creatinine Clearance Estimated 195 mL/min (50-200); Creatinine,Serum 0.50 mg/dl (0.52-1.04); Estimated Glomerular Filt Rate 131 ml/min (>60); GFR (African American) 159 ML/MIN (>60)
--- OUTSIDE RECORDS SUMMARY | 2025-04-24 20:39 | XMS_ITS | Clinical Summary ---
Author Organization [facility] Address [address] [place] [address] Phone Care Team Providers Care Superintendent Menagerie Name Role Phone Nonstaff, Referring Primary Care [...] daily. 30 Tablet 11 4 Active Insulin Independence, Disposable, (OLIVIER PEN NEEDLE) 32 gauge x [facility]le[facility]:Type 2 diabetes mellitus with [...] gain 10/31/2023 Coronary artery disease invo lving [place] coronary artery of [place] heart with angina pectoris 06/21/2023 Severe obesity [...] Diabetes mellitus (HCC) Hypertension Coronary artery disease [facility] 04/04/23 Anxiety disorder High cholesterol [...] ORDERABLES Final R esult Performing Organization Address [facility] Co de Phone Number SEP OFFICE * LIPID SCREEN (06/21/2023 10:01 AM EDT) Cholesterol 143 <200 mg/dL 06/21/2023 11:12 AM EDT [facility] Comment: < 200 Desirable 200 - 239 Borderline High >= 240 High Triglyceride 142 <150 mg/dL 06/21/2023 11:12 AM EDT [facility] Comment: < 150 Normal 150 - 199 Borderline High 200 - 499 High >= 500 Very High HDL 41 >=40 mg/dL 06/21/2023 11:12 AM EDT [facility] Comment: > 60 Optimal 40 - 60 Acceptable < 40 Low LDL Calculated 77 <100 mg/dL 06/21/2023 11:12 AM EDT [facility] Comment: < 100 Optimal 100 - 129 Near or above optimal 130 - 159 Borderline High 160 - 189 High >= 190 Very High Non-HDL-C Calculated 102 <=129 mg/dL 06/21/2023 11:12 AM EDT [facility] Comment: <130 Desirable 130-159 Above Desirable 160-189 Borderline High 190-219 High >= 220 Very High Fasting Specimen? Yes None 023 11:12 AM EDT [facility] Blood VENOUS BLOOD / Unknown Venipuncture / Unknown 06/21/2023 10:01 AM EDT 06/21/2023 10:14 AM EDT Jerad Beltran DO CHEMISTRY ORDERABLES Fin al Result Performing Organization Address [facility] Co de Phone Number [facility] [address] [facility] , [place] [place] [address] [facility] [address] [place] [address] from Last 3 Months or Most Recently Relevant to Health Maintenance Insurance MEDBEN [id number] [employer] [facility] [address] [id number] [employer] [place]OLA [place] MEDBEN [id number] Advance Directives For more information, please contact: [phone] * Full Code (Latest Code Status on File) Date Activated Date Inactivated Comments 06/20/2023 5:34 PM 06/21/2023 6:31 PM Care Teams Superintendent Menagerie Relationship Specialty Start Date End Date Nonstaff, Referring PCP - General 12/10/23
[2025-04-24 20:40] LABS: Albumin/Globulin Ratio 1.4 (1.1-1.8); Alkaline Phosphatase 82 U/L (38-126); Bilirubin,Total 0.5 mg/dl (0.2-1.3); Calcium 9.9 mg/dl (8.4-10.2); Globulin 3.4 g/dL (1.3-3.2); Glucose 154 mg/dl (74-100); Total Protein,Serum 8.0 g/dl (6.3-8.2)
[2025-04-24 20:44] LABS: INR 1.02 (0.9-1.1); Prothrombin Time 11.3 seconds (10.1-12.5)
[2025-04-24] MEDS: HYDROMORPHONE 2MG/ML SYRINGE 0.5 MG IV (20:48)
[2025-04-24 20:49] LABS: HCG Qualitative, Serum Negative (Negative)
[2025-04-24 20:51] LABS: Magnesium 1.8 mg/dl (1.6-2.3)
[2025-04-24 20:52] LABS: Troponin I < 0.01 ng/ml (0.00-0.034)
[2025-04-24 20:56] LABS: Lipase 162 U/L (23-300)
[2025-04-24 21:00] LABS: NT Pro Brain Natriuretic Pep. < 20.0 pg/mL (0-125)
--- NOTE | 2025-04-24 21:48 | CT_ITS ---
PROCEDURE INFORMATION: Exam: CT Abdomen And Pelvis With Contrast Exam date and time: 04/24/2025 10:13 PM Age: 49 years old Clinical indication: Abdominal pain; Additional info: Ruq pain, midepigastric pain, nausea TECHNIQUE: Imaging protocol: Computed tomography of the abdomen and pelvis with contrast. Radiation optimization: All CT scans at this facility use at least one of these dose optimization techniques: automated exposure control; mA and/or kV adjustment per patient size (includes targeted exams where dose is matched to clinical indication); or iterative reconstruction. Contrast material: ISOVUE; Contrast volume: 75 ml; Contrast route: IV; COMPARISON: CR XR CHEST PORTABLE 04/24/2025 8:39 PM FINDINGS: Liver: Fatty infiltration. No mass. Gallbladder and biliary ducts: Calculi without wall thickening. Pancreas: Unremarkable. No ductal dilation. Spleen: Unremarkable. No splenomegaly. Adrenal glands: Unremarkable. No mass. Kidneys and ureters: Unremarkable. No nephroureterolithiasis. No hydronephrosis. Stomach and bowel: Nonobstructive pattern. Appendix: No evidence of appendicitis. Intraperitoneal space: Unremarkable. No free air. No significant fluid collection. Vasculature: Unremarkable. No abdominal aortic aneurysm. Lymph nodes: Unremarkable. No enlarged lymph nodes. Urinary bladder: Unremarkable as visualized. Reproductive: Unremarkable as visualized. Bones/joints: Unremarkable. No acute fracture. Soft tissues: Unremarkable. IMPRESSION: 1. No acute findings. 2. Cholelithiasis without CT evidence for cholecystitis. 3. Fatty liver infiltration.
[2025-04-24] MEDS: SODIUM CHLORIDE 0.9% 10ML SYR (RAD ONLY) 10 ML IV (22:15)
[2025-04-24] MEDS: IOPAMIDOL-370 (76%);100ML BOTTLE 75 ML IV (22:16)
[2025-04-24 23:06] LABS: Troponin I < 0.01 ng/ml (0.00-0.034)
[2025-04-25] VITALS (10 sets, daily range): BP systolic 106–167; BP diastolic 47–98; PULSE 70–103; RESP 13–20; TEMP 36.4–37.1; O2SAT 96–100; BMI 39.4; BMI 39.5
[2025-04-25] MEDS: BELLADONNA ALKALOIDS 60 ML ML PO (00:22)
[2025-04-25] MEDS: ACETAMINOPHEN 500MG TAB 1000 MG PO (00:22)
[2025-04-25 01:20] LABS: D-Dimer 0.51 ug/mL (0.0-0.5)
--- NOTE | 2025-04-25 01:37 | EXP.HP ---
History of Present Illness *Admission Date: 04/25/25 *Reason for visit:: Chest pain *History of present illness: Oli Luque is a 49-year-old female with a medical history significant for CAD (15 stents), type 2 diabetes, obesity, hypertension, GERD who presents from home with intractable left-sided chest pain with radiation. Patient states chest pain began this afternoon, left-sided with radiation to left jaw and left arm. She proceeded to take nitro 0.5 mg x 3 sublingually without any alleviation. She also took her morning aspirin, Brilinta, Xarelto. Of note, patient has a complex cardiac history with 14 stents by both cardiologists and [facility] and now with Dr. Samano who previously recommended a CABG patient continues to have coronary issues. 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 She called EMS who gave additional nitro without significant improvement in chest pain. No recent medication changes other than starting Mounjaro in February. Workup in the ED significant for troponins normal x 3 and unremarkable EKG. CBC, CMP, CXR unremarkable. D-dimer 0.51. CT abdomen/pelvis shows cholelithiasis without evidence of cholecystitis. Patient was given Dilaudid which apparently made her chest pain worse, in addition to GI cocktail and Tylenol with eventual improvement of chest pain. Dr. Arevalo was consulted by the ED who recommended admission for C on Saturday. I discussed case with ED provider and decision is made to admit patient for unstable angina. [facility] Disclaimer: The information contained in this section may have been updated after the patient was seen, as this information can be updated by other users. Medical History Uterine adhesions delivery delivered STEMI (ST elevation myocardial infarction) Anxiety Hyperlipemia Hypertension Diabetes ADHD Surgical History H/O right wrist surgery H/O heart artery stent Social History (Updated 04/25/25 @ 02:35 by Eileen Donovan RN) Smoking Status: Never smoker alcohol intake: never current occupational status: employed Travel in the last 8 weeks?: None Have you lived/traveled outside US in past 30 days?: No Contact w/someone who lives/traveled outside US past 30 days?: No Exposure to someone with infectious disease in past 14 days?: No Do you have a fever (greater than 100.4 F or 38 C)?: No Have you tested positive for COVID-19?: No Exposed to someone with COVID-19 in past 14 days?: No Do you have a sore throat?: No Do you have a cough?: No Do you have any weakness?: No Are you experiencing any nausea/vomitting?: No Do you have any diarrhea?: No Are you experiencing any unusual bleeding?: No Do you have any muscle aches/pain?: No Do you have any abdominal pain?: No Are you experiencing loss of taste or smell?: No Meds Home Medications and Allergies Home Medications ?Medication ?Instructions ?Recorded ?Confirmed ?Type isosorbide dinitrate 30 mg tablet 30 mg PO BID #180 tabs 11/18/24 04/25/25 Rx magnesium aspart,citrate,oxide 400 mg PO DAILY #90 caps 11/18/24 04/25/25 Rx pantoprazole 40 mg tablet,delayed 40 mg PO ONCE #90 tabs 11/18/24 04/25/25 Rx release propranolol 10 mg tablet 10 mg PO ONCE #90 tabs 11/18/24 04/25/25 Rx ticagrelor 90 mg tablet (Brilinta) 90 mg PO DAILY 11/18/24 04/25/25 History blood-glucose,shot core drill operator,cont #1 ea 11/20/24 04/05/25 Rx (FreeStyle [place] 3 [place]) pen needle, diabetic 31 gauge x #200 ea 11/20/24 04/05/25 Rx 1/4 (Comfort EZ Pen [place]) furosemide 20 mg tablet 20 mg PO ONCE #90 tabs 12/16/24 04/25/25 Rx fenofibrate nanocrystallized 145 145 mg PO ONCE #90 tabs 01/11/25 04/25/25 Rx mg tablet tirzepatide 7.5 mg/0.5 mL 7.5 mg (0.5 mL) SQ WEEKLY #2 mL 01/18/25 04/25/25 Rx subcutaneous pen injector (Jeffy) blood-glucose sensor (FreeStyle #3 ea 03/05/25 04/05/25 Rx [place] 3 Plus Sensor device) evolocumab 140 mg/mL subcutaneous 140 mg SQ Q2W #2 mL 03/05/25 04/25/25 Rx pen injector (Repatha Oracioick) hydroxyzine HCl 25 mg tablet 25 mg PO BID #180 tabs 03/05/25 04/25/25 Rx losartan 25 mg tablet 25 mg PO DAILY #90 tabs 03/05/25 04/25/25 Rx rivaroxaban 2.5 mg tablet (Xarelto) 2.5 mg PO BID #60 tabs 03/05/25 04/25/25 Rx lisdexamfetamine 50 mg capsule 50 mg PO DAILY #30 caps 04/05/25 04/25/25 Rx (Vyvanse) nitroglycerin 0.4 mg sublingual 0.4 mg sublingual Q5-15M PRN chest 04/05/25 04/25/25 Rx tablet pain #20 tabs lisdexamfetamine 10 mg capsule 10 mg PO DAILY #30 caps 04/12/25 04/25/25 Rx (Vyvanse) Basaglar KwikPen U-100 Insulin 100 100 unit SQ HS #15 mL 04/15/25 04/25/25 Rx unit/mL (3 mL) subcutaneous (insulin glargine) Fiasp FlexTouch U-100 Insulin 100 1 sliding scale dose SQ 04/16/25 04/25/25 Rx unit/mL (3 mL) subcutaneous pen USEASDIRECTD #15 mL (insulin aspart (niacinamide)) aspirin 81 mg chewable tablet 81 mg PO DAILY 04/25/25 04/25/25 History ergocalciferol (vitamin D2) 1,250 1,250 mcg PO WEEKLY 04/25/25 04/25/25 History mcg (50,000 unit) capsule New Prescriptions to Start Prescriptions: Allergies Allergy/AdvReac Type Severity Reaction Status Date / Time ondansetron (From Zofran) Allergy Severe Anaphylaxis Verified 04/05/25 13:33 Penicillins Allergy Mild Rash Verified 04/05/25 13:33 semaglutide (From Ozempic) Allergy Mild Vomiting Verified 04/05/25 13:33 Steroid Allergy Allergy Mild Agitated Uncoded 04/05/25 13:33 Exam Data for Last 24 hours Vital signs and Labs for Last 24 Hours: Temp Pulse Resp BP Pulse Ox O2 Del Method 98.1 F 79 13 161/98 H 96 Room Air 04/24/25 20:14 04/24/25 22:00 04/25/25 00:30 04/25/25 00:30 04/24/25 22:00 04/24/25 20:14 Laboratory Results - last 24 hr 04/24/25 20:12: WBC 5.5, RBC 4.73, Hgb 13.6, Hct 40.6, MCV 85.8, MCH 28.8, MCHC 33.5, RDW 14.2, Plt Count 294, MPV 8.9, Neut % (Auto) 60.5, Lymph % (Auto) 28.8, [place] % (Auto) 7.2, Eos % (Auto) 2.6, Baso % (Auto) 0.7, Neut # (Auto) 3.3, Lymph # (Auto) 1.6, [place] # (Auto) 0.4, Eos # (Auto) 0.1, Baso # (Auto) 0.0, PT 11.3, INR 1.02, Sodium 137, Potassium 3.4 L, Chloride 101, Carbon Dioxide 31 H, Anion Gap 8.4, BUN 18 H, Creatinine 0.50 L, Estimated Creat Clear 195, Estimated GFR 131, Est GFR ( Amer) 159, Glucose 154 H, Calcium 9.9, Magnesium 1.8, Total Bilirubin 0.5, AST 38 H, ALT 25, Alkaline Phosphatase 82, Troponin I < 0.01, NT-Pro-B Natriuret Pep < 20.0, Total Protein 8.0, Albumin 4.6, Globulin 3.4 H, Albumin/Globulin Ratio 1.4, Lipase 162, Serum HCG, Qual Negative 04/24/25 22:27: Troponin I < 0.01 04/25/25 00:25: D-Dimer 0.51 H I & O for Last 24 hours: Intake & Output 04/22/25 04/23/25 04/24/25 04/25/25 23:59 23:59 23:59 23:59 Weight 90.718 kg Constitutional Constitutional: no acute distress and obese *Routine HEENT Exam Head: Present normocephalic Eye: Present EOMI and PERRL ENT: Present mucous membranes moist *Routine Neck Exam Neck: Present supple; Absent lymphadenopathy *Routine Respiratory Exam Respiratory: Present CTA bilaterally *Routine Cardiovascular Exam Cardiovascular: Present RRR *Routine Abdominal Exam Abdominal: Present soft and normoactive bowel sounds; Absent tenderness *Routine Rectal Exam Rectal:: deferred *Routine Genitalia Exam Genitalia:: deferred *Routine Extremities Exam Extremities: Absent cyanosis, clubbing or edema *Routine Skin Exam Skin: Present warm; Absent rash *Routine Neurological Exam Neurological: Present alert and oriented X3 Assessment and Plan *Assessment and plan (1) Chest pain: Status: Acute Category: Medical Code(s): R07.9 - Chest pain, unspecified (2) Coronary artery disease: Status: Acute Category: Medical Code(s): I25.10 - Atherosclerotic heart disease of [place] coronary artery without angina pectoris (3) Diabetes: Status: Acute Category: Medical Code(s): E11.9 - Type 2 diabetes mellitus without complications (4) Hypertension: Status: Acute Category: Medical Code(s): I10 - Essential (primary) hypertension Plan Oli Luque is a 49-year-old female with a medical history significant for CAD (15 stents), type 2 diabetes, obesity, hypertension, GERD who presents from home with intractable left-sided chest pain with radiation. Patient states chest pain began this afternoon, left-sided with radiation to left jaw and left arm. She proceeded to take nitro 0.5 mg x 3 sublingually without any alleviation. She also took her morning aspirin, Brilinta, Xarelto. Of note, patient has a complex cardiac history with 14 stents by both cardiologists and [facility] and now with Dr. Samano who previously recommended a CABG patient continues to have coronary issues. 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 She called EMS who gave additional nitro without significant improvement in chest pain. No recent medication changes other than starting Mounjaro in February. Workup in the ED significant for troponins normal x 3 and unremarkable EKG. CBC, CMP, CXR unremarkable. D-dimer 0.51. CT abdomen/pelvis shows cholelithiasis without evidence of cholecystitis. Patient was given Dilaudid which apparently made her chest pain worse, in addition to GI cocktail and Tylenol with eventual improvement of chest pain. Dr. Arevalo was consulted by the ED who recommended admission for [facility] on Saturday. I discussed case with ED provider and decision is made to admit patient for chest pain evaluation. #Chest pain #Unstable angina versus anxiety #CAD with 15 stents #Obesity ? Presented with left-sided chest pain with radiation to left jaw, arm without improved with nitro. Troponins, EKG normal so far. ? Complex cardiac history with 15 stents, with risk factors including uncontrolled type 2 diabetes, obesity, hypertension. Dr. Morris previously recommended CABG if patient continues to have coronary issues, but Dr. Arevalo would like to further evaluate with an [facility] prior to that consideration. ? Patient also has seemingly uncontrolled life stressors likely contributing to anxiety. ? D-dimer slightly elevated 0.51, can consider CTA chest if patient continues to have chest pain. Wells score is 0, low concern for PE at this time. ? A1c 9.2%, LDL of 65, TSH low 0.44, normal free T4. ? Continue home aspirin 81 mg, Brilinta 90 mg daily, Xarelto 2.5 mg twice daily, Isordil 30 mg twice daily, hydroxyzine 25 mg twice daily. ? Started metoprolol 25 mg daily. Consider ranolazine if continues to have chest pain. ? Ativan 0.5 mg twice daily as needed as needed for chest pain refractory to nitro, possibly from anxiety. ? Hold home Vyvanse, would recommend discontinuing in light of patient's significant CAD. ? Follow-up ECHO on Saturday. ? Cardiology consulted, pending further recommendations. N.p.o. at midnight on Saturday. ? Continuous cardiac telemetry. #Uncontrolled type 2 diabetes ? Hemoglobin A1c 9.2% early this month. ? Continue home glargine, reduced 40 units nightly for now. ? MDSSI, ACHS glucose checks. ? Hold home Mounjaro for now. Consider SGLT2i upon discharge. #Hypertension ? Continue home losartan 25 mg, Isordil 30 mg twice daily. #ADHD ? Hold home Vyvanse, would recommend discontinuing or reducing dose in light of patient's significant CAD. #GERD ? Continue home PPI. #Obesity ? Complicates all aspects of care. Full code DVT prophylaxis: Home Xarelto
--- NOTE | 2025-04-25 02:03 | PC.NURSE ---
report called to andi
--- NOTE | 2025-04-25 02:17 | PC.NURSE ---
PT arrived to the floord @ [id number]
[2025-04-25] MEDS: SODIUM CHLORIDE 0.9% 25ML BAG 25 ML IV (02:52)
[2025-04-25] MEDS: PROMETHAZINE HCL 25MG/ML 1ML VIAL 12.5 MG IV (02:52)
--- NOTE | 2025-04-25 03:17 | PC.NURSE ---
electrolyte replacement protocol ordered, potassium 3.4, MD Herrera ok to what for am labs to replace potassium
--- NOTE | 2025-04-25 04:24 | PC.NURSE ---
patient was a new admission this shift with chest pain, since arriving to the floor patient has not complained of pain, paitiet reported feeling nauseas, phenergan given per mar, no other needs voiced at this time. call esther is
[2025-04-25 05:05] LABS: Troponin I < 0.01 ng/ml (0.00-0.034)
[2025-04-25 06:37] LABS: Hematocrit 39.6 % (37.0-47.0); Hemoglobin 13.2 g/dL (12.2-16.2); Immature Granulocytes % 0.2 %; Mean Corpuscular HGB Conc 33.3 g/dL (31.8-35.4); Mean Corpuscular Hemoglobin 28.8 pg (27.0-31.2); Mean Corpuscular Volume 86.3 fl (81-99); Nucleated Red Blood Cells % 0 %; Platelet Count 250 K/mm3 (142-424); Red Blood Count 4.59 M/mm3 (4.20-5.40); Red Cell Distribution Width-SD 44.3 fL; White Blood Count 4.2 K/mm3 (4.8-10.8)
[2025-04-25 06:58] LABS: Alanine Aminotransferase 21 U/L (12-78); Albumin Level 3.5 g/dl (3.5-5.0); Albumin/Globulin Ratio 1.1 (1.1-1.8); Alkaline Phosphatase 78 U/L (38-126); Anion Gap 9.2 mEq/L (5-15); Aspartate Amino Transferase 36 U/L (14-36); Bilirubin,Total 0.4 mg/dl (0.2-1.3); Blood Urea Nitrogen 16 mg/dl (7-17); Calcium 9.3 mg/dl (8.4-10.2); Carbon Dioxide 28 mmol/L (22.0-30.0); Chloride 105 mmol/L (98-107); Creatinine Clearance Estimated 196 mL/min (50-200); Creatinine,Serum 0.50 mg/dl (0.52-1.04); Estimated Glomerular Filt Rate 131 ml/min (>60); GFR (African American) 159 ML/MIN (>60); Globulin 3.2 g/dL (1.3-3.2); Glucose 111 mg/dl (74-100); Magnesium 2.0 mg/dl (1.6-2.3); Potassium 3.2 mmoL/L (3.5-5.1); Sodium 139 mmol/L (136-145); Total Protein,Serum 6.7 g/dl (6.3-8.2)
--- NOTE | 2025-04-25 09:12 | HMH.PHAINT1 ---
Pharmacy Intervention Comments: MEDICATION RECONCILIATION COMPLETED ON PATIENT USING EXTERNAL FILL HISTORY FROM PHARMACY. -LORETO MICHELE, LAVOND
[2025-04-25] MEDS: IRBESARTAN 75MG TABLET 37.5 MG PO (09:18)
[2025-04-25] MEDS: ASPIRIN 81MG CHEWABLE TABLET 81 MG PO (09:18)
[2025-04-25] MEDS: MAGNESIUM OXIDE 400MG TABLET 400 MG PO (09:19)
[2025-04-25] MEDS: POTASSIUM CHLORIDE 20MEQ TAB 40 MEQ PO ×2 (09:19→14:02)
[2025-04-25] MEDS: METOPROLOL SUCCINATE XL 25MG TABLET 25 MG PO (09:19)
[2025-04-25 12:22] LABS: POC Glucose,Bedside 129 (70-110)
--- NOTE | 2025-04-25 15:33 | PC.NURSE ---
Pt is alert and oriented x4. Machado denied any complaints thus far. She has slept the majority of the shift. She's been NSR on tele. She's NPO at midnight for cardiology consult in the am.
[2025-04-25 16:20] LABS: POC Glucose,Bedside 159 (70-110)
[2025-04-25] MEDS: humaLOG 100 UNITS/ML 10ML VIAL (SSI) SUBCUT (16:23)
[2025-04-25 20:03] LABS: POC Glucose,Bedside 133 (70-110)
[2025-04-25] MEDS: INSULIN GLARGINE 100 UNITS/ML 3ML FLEXPEN 40 UNIT SUBCUT (20:49)
[2025-04-25] MEDS: PANTOPRAZOLE 40MG TABLET 40 MG PO (20:50)
[2025-04-26] VITALS: PULSE 80
[2025-04-26 04:00] VITALS: BP 130/76; PULSE 76; PULSE 80; RESP 16; TEMP 36.8; O2SAT 97; BMI 39.8
[2025-04-26 05:42] LABS: POC Glucose,Bedside 111 (70-110)
--- NOTE | 2025-04-26 06:00 | CA_ITS ---
APPROVED REPORT EXAM: Comprehensive 2D, Doppler, and color-flow Echocardiogram Modeling Director: Mavis Ni RDCS Ht: 4 ft 11 in Wt: 201lbs BSA: 1.85 BP: 160/98 mmHg Indications: CP,STEMI,H/O STENTS M-Mode Dimensions RVDd 1.67 cm (0.9-2.6) LA Diam 3.28 cm (1.9-4.0) LVDd 5.06 cm (3.5-5.7) LVDs 4.02 cm (3.5-5.7) IVSd 0.86 cm (0.6-1.1) PWd 1.00 cm (0.6-1.1) EF (Teich) 41.80% FS 20.60% EDV (Teich) 121.60 mL ESV (Teich) 70.80 mL LV Diastology E Decel Time 210 (160-240 msec) E/A Ratio 1.2 Mitral Valve MV E Max Hair. 76.0 (40-130 cm/s) MV A Velocity 63.0 (40-130 cm/s) E/A Ratio 1.19 MV PHT 62.0 ms Left Ventricle The left ventricle is normal size. The left ventricular systolic function is normal. The left ventricular ejection fraction is within the normal range. There is increased LV wall thickness. There is normal LV segmental wall motion. The left ventricular diastolic function is normal. LVEF is 55%. Right Ventricle The right ventricle is normal size. The right ventricular systolic function is normal. Atria The left atrium size is normal. The right atrium size is normal. There is no Doppler evidence of interatrial shunt. Aortic Valve The aortic valve is normal in structure. There is no aortic valvular stenosis. Trace aortic regurgitation. Mitral Valve The mitral valve is normal in structure. No evidence of mitral valve stenosis. Trace mitral regurgitation. Tricuspid Valve Tricuspid valve is grossly normal in structure and function. Trace tricuspid regurgitation. There is insufficient TR jet to estimate RVSP. Pulmonic Valve The pulmonary valve is normal in structure. Mild pulmonic regurgitation. Great Vessels The aortic root is normal in size. IVC is normal in size and collapses >50% with inspiration. Pericardium There is no pericardial effusion. Other Information Study Quality: Fair Conclusion Normal biventricular systolic function. Mild PI. Electronically signed by : Ena Martin MD 04/26/2025 13:11:54
[2025-04-26 07:05] LABS: Alanine Aminotransferase 24 U/L (12-78); Albumin Level 4.0 g/dl (3.5-5.0); Albumin/Globulin Ratio 1.5 (1.1-1.8); Alkaline Phosphatase 68 U/L (38-126); Anion Gap 8.7 mEq/L (5-15); Aspartate Amino Transferase 35 U/L (14-36); Bilirubin,Total 0.4 mg/dl (0.2-1.3); Blood Urea Nitrogen 12 mg/dl (7-17); Calcium 8.9 mg/dl (8.4-10.2); Carbon Dioxide 26 mmol/L (22.0-30.0); Chloride 108 mmol/L (98-107); Creatinine Clearance Estimated 198 mL/min (50-200); Creatinine,Serum 0.50 mg/dl (0.52-1.04); Estimated Glomerular Filt Rate 131 ml/min (>60); GFR (African American) 159 ML/MIN (>60); Globulin 2.6 g/dL (1.3-3.2); Glucose 112 mg/dl (74-100); Magnesium 2.0 mg/dl (1.6-2.3); Potassium 3.7 mmoL/L (3.5-5.1); Sodium 139 mmol/L (136-145); Total Protein,Serum 6.6 g/dl (6.3-8.2)
[2025-04-26 07:06] LABS: Hematocrit 39.6 % (37.0-47.0); Hemoglobin 13.0 g/dL (12.2-16.2); Immature Granulocytes % 0.5 %; Mean Corpuscular HGB Conc 32.8 g/dL (31.8-35.4); Mean Corpuscular Hemoglobin 28.8 pg (27.0-31.2); Mean Corpuscular Volume 87.6 fl (81-99); Nucleated Red Blood Cells % 0 %; Platelet Count 257 K/mm3 (142-424); Red Blood Count 4.52 M/mm3 (4.20-5.40); Red Cell Distribution Width-SD 46.1 fL; White Blood Count 4.4 K/mm3 (4.8-10.8)
[2025-04-26 08:00] VITALS: BP 113/62; PULSE 70; PULSE 71; RESP 16; TEMP 36.8; O2SAT 99
[2025-04-26] MEDS: METOPROLOL SUCCINATE XL 25MG TABLET 25 MG PO (08:34)
[2025-04-26] MEDS: IRBESARTAN 75MG TABLET 37.5 MG PO (08:34)
[2025-04-26] MEDS: ASPIRIN 81MG CHEWABLE TABLET 81 MG PO (08:34)
[2025-04-26] MEDS: MAGNESIUM OXIDE 400MG TABLET 400 MG PO (08:34)
--- NOTE | 2025-04-26 09:31 | CT_ITS ---
FINAL REPORT TECHNIQUE: Axial imaging of the chest is obtained after the administration of contrast. 3-D MIP reformatted images were also obtained and reviewed per PE protocol. CLINICAL HISTORY: chest pain, elevated d dimer COMPARISON: None FINDINGS: The pulmonary arteries are well filled. There is no evidence of pulmonary embolus. There is no aortic dissection. Heart size is normal. There is no mediastinal, hilar, or axillary lymphadenopathy. The lungs are clear. There is no pleural or pericardial effusion. Gallstones are present in the gallbladder without evidence of biliary ductal dilatation. No acute osseous abnormality. IMPRESSION: No evidence of pulmonary embolism or aortic dissection. Incidental note is made of gallstones in the gallbladder. Reviewed, Interpreted and Dictated by Erika Chacon MD Transcribed by Loida Hurtado Authenticated and [facility]
--- NOTE | 2025-04-26 10:44 | EXP.CARD.CON ---
History of Present Illness History of Present Illness Consult date: 04/26/25 Requesting physician: Larry Rolle Consult reason: chest pain Chief complaint: Chest roman History of present illness: This is a 49-year-old white female with past medical history of coronary artery disease with a history of 15 stents, type 2 diabetes mellitus, obesity, hypertension and GERD who presented to emergency department today with complaints of left-sided chest pain radiating to neck. Patient reports she has been under a lot of stress with work and home and she thinks this might have been contributing to her symptoms. She proceeded to take nitro 0.5 mg x 3 sublingually without any resolution of symptoms prompting her to come to the ER. Upon presentation to ER EKG was negative for STEMI. Serial troponins x 3 were unremarkable. CBC CMP and chest x-ray were all unremarkable. A D-dimer was elevated at 0.51. CT abdomen pelvis showed cholelithiasis without evidence of cholecystitis. Reports that Dilaudid given in the ER made her pain worse and that her chest pain did eventually improve with a GI cocktail and Tylenol. Patient was admitted for further evaluation for chest pain. CTA chest and echocardiogram are pending this morning. This morning patient denies chest pain or shortness of breath. [facility] Disclaimer: The information contained in this section may have been updated after the patient was seen, as this information can be updated by other users. Medical History Uterine adhesions delivery delivered STEMI (ST elevation myocardial infarction) Anxiety Hyperlipemia Hypertension Diabetes ADHD Surgical History H/O right wrist surgery H/O heart artery stent Social History (Updated 04/25/25 @ 02:35 by Eileen Donovan RN) Smoking Status: Never smoker alcohol intake: never current occupational status: employed Travel in the last 8 weeks?: None Have you lived/traveled outside [place] in past 30 days?: No Contact w/someone who lives/traveled outside [place] past 30 days?: No Exposure to someone with infectious disease in past 14 days?: No Do you have a fever (greater than 100.4 F or 38 C)?: No Have you tested positive for COVID-19?: No Exposed to someone with COVID-19 in past 14 days?: No Do you have a sore throat?: No Do you have a cough?: No Do you have any weakness?: No Are you experiencing any nausea/vomitting?: No Do you have any diarrhea?: No Are you experiencing any unusual bleeding?: No Do you have any muscle aches/pain?: No Do you have any abdominal pain?: No Are you experiencing loss of taste or smell?: No Review of Systems Review of Systems Review of systems:: pertinent systems reviewed and negative unless documented below Constitutional Constitutional: Reports system reviewed and no additional complaints, except as documented *Cardiovascular Cardiovascular: Reports chest pain *Respiratory Respiratory: Reports system reviewed and no additional complaints, except as documented *Gastrointestinal Gastrointestinal: Reports system reviewed and no additional complaints, except as documented *Neurologic Neurologic: Reports system reviewed and no additional complaints, except as documented and Denies confusion Psychiatric Psychiatric: Reports system reviewed and no additional complaints, except as documented and Denies confusion Exam Data for Last 24 hours Vital signs and Labs for Last 24 Hours: Temp Pulse Resp BP Pulse Ox O2 Del Method 98.2 F 71 16 113/62 99 Room Air 04/26/25 08:00 04/26/25 08:00 04/26/25 08:00 04/26/25 08:00 04/26/25 08:00 04/26/25 09:00 Laboratory Results - last 24 hr 04/25/25 12:14: POC Glucose 129 H 04/25/25 16:09: POC Glucose 159 H 04/25/25 19:53: POC Glucose 133 H 04/26/25 05:33: POC Glucose 111 H 04/26/25 05:34: WBC 4.4 L, RBC 4.52, Hgb 13.0, Hct 39.6, MCV 87.6, MCH 28.8, MCHC 32.8, RDW 14.5, Plt Count 257, MPV 8.9, Neut % (Auto) 48.3, Lymph % (Auto) 36.9, [place] % (Auto) 7.7, Eos % (Auto) 5.7, Baso % (Auto) 0.9, Neut # (Auto) 2.1, Lymph # (Auto) 1.6, [place] # (Auto) 0.3, Eos # (Auto) 0.3, Baso # (Auto) 0.0, Sodium 139, Potassium 3.7, Chloride 108 H, Carbon Dioxide 26, Anion Gap 8.7, BUN 12, Creatinine 0.50 L, Estimated Creat Clear 198, Estimated GFR 131, Est GFR ( Amer) 159, Glucose 112 H, Calcium 8.9, Magnesium 2.0, Total Bilirubin 0.4, AST 35, ALT 24, Alkaline Phosphatase 68, Total Protein 6.6, Albumin 4.0 D, Globulin 2.6, Albumin/Globulin Ratio 1.5 I & O for Last 24 hours: Intake & Output 04/23/25 04/24/25 04/25/25 04/26/25 23:59 23:59 23:59 23:59 Intake Total 1440 / 1440 Output Total 2800 / 2800 Balance -1360 / -1360 Weight 200 lb 201 lb 4.8 oz 203 lb Constitutional Constitutional: no acute distress *Routine Respiratory Exam Respiratory: Present CTA bilaterally and symmetric chest movement *Routine Cardiovascular Exam Cardiovascular: Present RRR, Normal S1 and Normal S2 *Routine Abdominal Exam Abdominal: Present soft and normoactive bowel sounds; Absent tenderness *Routine Extremities Exam Extremities: Present full ROM and normal capillary refill; Absent edema *Routine Skin Exam Skin: Present intact, dry and warm Detailed Neck Exam: Thyroids Thyroid: Absent bruit Meds Home Medications and Allergies Home Medications ?Medication ?Instructions ?Recorded ?Confirmed ?Type magnesium aspart,citrate,oxide 400 mg PO DAILY #90 caps 11/18/24 04/25/25 Rx ticagrelor 90 mg tablet (Brilinta) 90 mg PO BID 11/18/24 04/25/25 History blood-glucose,die sinker,cont #1 ea 11/20/24 04/25/25 Rx (FreeStyle [place] 3 [place]) pen needle, diabetic 31 gauge x #200 ea 11/20/24 04/25/25 Rx 1/ (Comfort EZ Pen [place]) tirzepatide 7.5 mg/0.5 mL 7.5 mg (0.5 mL) SQ WEEKLY #2 mL 01/18/25 04/25/25 Rx subcutaneous pen injector (Mounjaro) blood-glucose sensor (FreeStyle #3 ea 03/05/25 04/25/25 Rx [place] 3 Plus Sensor device) evolocumab 140 mg/mL subcutaneous 140 mg SQ Q2W #2 mL 03/05/25 04/25/25 Rx pen injector (Repatha SureClick) hydroxyzine HCl 25 mg tablet 25 mg PO BID #180 tabs 03/05/25 04/25/25 Rx losartan 25 mg tablet 25 mg PO DAILY #90 tabs 03/05/25 04/25/25 Rx rivaroxaban 2.5 mg tablet (Xarelto) 2.5 mg PO BID #60 tabs 03/05/25 04/25/25 Rx lisdexamfetamine 50 mg capsule 50 mg PO DAILY #30 caps 04/05/25 04/25/25 Rx (Vyvanse) nitroglycerin 0.4 mg sublingual 0.4 mg sublingual Q5-15M PRN chest 04/05/25 04/25/25 Rx tablet pain #20 tabs lisdexamfetamine 10 mg capsule 10 mg PO DAILY #30 caps 04/12/25 04/25/25 Rx (Vyvanse) Basaglar KwikPen U-100 Insulin 100 100 unit SQ HS #15 mL 04/15/25 04/25/25 Rx unit/mL (3 mL) subcutaneous (insulin glargine) Fiasp FlexTouch U-100 Insulin 100 1 sliding scale dose SQ 04/16/25 04/25/25 Rx unit/mL (3 mL) subcutaneous pen USEASDIRECTD #15 mL (insulin aspart (niacinamide)) aspirin 81 mg chewable tablet 81 mg PO DAILY 04/25/25 04/25/25 History ergocalciferol (vitamin D2) 1,250 1,250 mcg PO WEEKLY 04/25/25 04/25/25 History mcg (50,000 unit) capsule fenofibrate nanocrystallized 145 145 mg PO DAILY 04/25/25 04/25/25 History mg tablet furosemide 20 mg tablet 20 mg PO DAILY 04/25/25 04/25/25 History New Prescriptions to Start Prescriptions: Allergies Allergy/AdvReac Type Severity Reaction Status Date / Time ondansetron (From Zofran) Allergy Severe Anaphylaxis Verified 04/05/25 13:33 Penicillins Allergy Mild Rash Verified 04/05/25 13:33 semaglutide (From Ozempic) Allergy Mild Vomiting Verified 04/05/25 13:33 Steroid Allergy Allergy Mild Agitated Uncoded 04/05/25 13:33 Assessment and Plan *Assessment and plan (1) Chest pain: Status: Acute Category: Medical Code(s): R07.9 - Chest pain, unspecified (2) Coronary artery disease: Status: Acute Category: Medical Code(s): I25.10 - Atherosclerotic heart disease of [place] coronary artery without angina pectoris (3) Hypertension: Status: Acute Category: Medical Code(s): I10 - Essential (primary) hypertension (4) Diabetes: Status: Acute Category: Medical Code(s): E11.9 - Type 2 diabetes mellitus without complications (5) Hyperlipemia: Status: Acute Category: Medical Code(s): E78.5 - Hyperlipidemia, unspecified Plan History of coronary artery disease History of stenting Chest pain on admission Anxiety Serial troponins remain negative EKG negative for STEMI D-dimer positive CTA chest negative for PE Chest pain-free this morning Echo echo shows normal biventricular systolic function with mild PI Patient was offered a left heart catheterization for chest pain since she is a high risk patient with multiple stents in the past. Patient reports at this time she would like to hold off on cath if at all possible and follow-up on an outpatient basis. Stop Brilinta. Load with Plavix and continue Plavix 75 mg p.o. daily in addition to aspirin 81 mg p.o. daily and Xarelto 2.5 mg p.o. twice daily Hypertension Continue irbesartan 37.5 mg p.o. daily and metoprolol succinate 25 mg p.o. daily Diabetes mellitus type 2 Defer to primary service Hyperlipidemia LDL goal less than 55, LDL is 65 Continue Repatha Consider addition of a statin if patient can tolerate and is not allergic. CV summary 04/26/2025: Echo shows normal biventricular systolic function without acute wall motion abnormalities noted. CTA chest negative for PE. Patient is CV stable for discharge home. Please have her follow-up in cardiology clinic in 1 week for reevaluation and outpatient ischemic evaluation. Cardiac meds: Make 75 mg p.o. daily Aspirin 81 mg p.o. daily Xarelto 2.5 mg p.o. twice daily Metoprolol succinate 25 mg p.o. daily Irbesartan 37.5 mg p.o. daily Repatha 140 mg SQ every 2 weeks
[2025-04-26] MEDS: 0.9 % SODIUM CHLORIDE 50 ML VIAL IV (10:46)
[2025-04-26] MEDS: SODIUM CHLORIDE 0.9% 10ML SYR (RAD ONLY) 10 ML IV (10:47)
[2025-04-26] MEDS: IOPAMIDOL-370 (76%);100ML BOTTLE 75 ML IV (10:47)
[2025-04-26 12:00] VITALS: BP 136/68; PULSE 70; PULSE 79; RESP 16; TEMP 37.1; O2SAT 98
[2025-04-26 12:04] LABS: POC Glucose,Bedside 108 (70-110)
--- NOTE | 2025-04-26 12:04 | EXP.DC.SUM ---
General Admission date:: 04/25/25 Discharge date: 04/26/25 HPI HPI HPI: Oli Luque is a 49-year-old female with a medical history significant for CAD (15 stents), type 2 diabetes, obesity, hypertension, GERD who presents from home with intractable left-sided chest pain with radiation. Patient states chest pain began this afternoon, left-sided with radiation to left jaw and left arm. She proceeded to take nitro 0.5 mg x 3 sublingually without any alleviation. She also took her morning aspirin, Brilinta, Xarelto. Of note, patient has a complex cardiac history with 14 stents by both cardiologists and [facility] and now with Dr. Samano who previously recommended a CABG patient continues to have coronary issues. 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 She called EMS who gave additional nitro without significant improvement in chest pain. No recent medication changes other than starting Mounjaro in February. Workup in the ED significant for troponins normal x 3 and unremarkable EKG. CBC, CMP, CXR unremarkable. D-dimer 0.51. CT abdomen/pelvis shows cholelithiasis without evidence of cholecystitis. Patient was given Dilaudid which apparently made her chest pain worse, in addition to GI cocktail and Tylenol with eventual improvement of chest pain. Dr. Arevalo was consulted by the ED who recommended admission for [place] on Saturday. I discussed case with ED provider and decision is made to admit patient for unstable angina. Hospital Course Hospital Course Hospital Course: Oli Luque is a 49-year-old female with a medical history significant for CAD (15 stents), type 2 diabetes, obesity, hypertension, GERD who presents from home with intractable left-sided chest pain with radiation. Patient states chest pain began this afternoon, left-sided with radiation to left jaw and left arm. She proceeded to take nitro 0.5 mg x 3 sublingually without any alleviation. She also took her morning aspirin, Brilinta, Xarelto. Of note, patient has a complex cardiac history with 14 stents by both cardiologists and [facility] and now with Dr. Samano who previously recommended a CABG patient continues to have coronary issues. 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 She called EMS who gave additional nitro without significant improvement in chest pain. No recent medication changes other than starting Mounjaro in February. Workup in the ED significant for troponins normal x 3 and unremarkable EKG. CBC, CMP, CXR unremarkable. D-dimer 0.51. CT abdomen/pelvis shows cholelithiasis without evidence of cholecystitis. Patient was given Dilaudid which apparently made her chest pain worse, in addition to GI cocktail and Tylenol with eventual improvement of chest pain. Dr. Arevalo was consulted by the ED who recommended admission for consideration of left heart cath. Patient's chest pain resolved. Cardiology evaluated. As her echo is normal and troponin normal, decision made to follow-up as an outpatient. Stable with discharge home. Problems addressed as follows: #Chest pain #Unstable angina versus anxiety #CAD with 15 stents #Obesity # Hypertension ? Presented with left-sided chest pain with radiation to left jaw, arm without improved with nitro. Troponins, EKG normal. Monitored on telemetry with no acute events. Patient has a complex cardiac history with 15 stents, with risk factors including uncontrolled type 2 diabetes, obesity, hypertension. Cardiology evaluated. Repeat echo shows normal BiV function without acute wall motion abnormalities. CTA of her chest negative for PE. Deemed stable to discharge home. Changes made to her antiplatelet therapy. Patient also has seemingly uncontrolled life stressors likely contributing to anxiety. - TSH low 0.44, normal free T4. ? Continue home aspirin 81 mg, discontinue Brilinta and transition to Plavix 75 mg daily. - Initiated on metoprolol succinate 25 mg daily. - Continue Xarelto 2.5 mg p.o. twice daily - Continue losartan 25 mg daily - Continue Repatha 140 mg subcu every 2 weeks #Uncontrolled type 2 diabetes: Hemoglobin A1c 9.2% early this month. Continue home Basaglar 100 units daily. Resume sliding scale insulin per home regimen. Resume home Mounjaro. #ADHD: Recommended holding Vyvanse however patient states she is nonfunctional without it due to her ADHD and difficulty focusing. Reports she even misses her home medications including her heart meds if she does not take her Vyvanse. Will defer to her preference resuming her stimulant medication for ADHD. Strong concern may increase her risk for adverse cardiac events in light of her known CAD. #GERD: Continue home PPI. #Obesity: Complicates all aspects of care. Total time spent on discharge 32 minutes in counseling, documentation, chart review, and direct care with patient. Exam Data for Last 24 hours Vital signs and Labs for Last 24 Hours: Temp Pulse Resp BP Pulse Ox O2 Del Method 98.2 F 71 16 113/62 99 Room Air 04/26/25 08:00 04/26/25 08:00 04/26/25 08:00 04/26/25 08:00 04/26/25 08:00 04/26/25 09:00 Laboratory Results - last 24 hr 04/25/25 12:14: POC Glucose 129 H 04/25/25 16:09: POC Glucose 159 H 04/25/25 19:53: POC Glucose 133 H 04/26/25 05:33: POC Glucose 111 H 04/26/25 05:34: WBC 4.4 L, RBC 4.52, Hgb 13.0, Hct 39.6, MCV 87.6, MCH 28.8, MCHC 32.8, RDW 14.5, Plt Count 257, MPV 8.9, Neut % (Auto) 48.3, Lymph % (Auto) 36.9, [place] % (Auto) 7.7, Eos % (Auto) 5.7, Baso % (Auto) 0.9, Neut # (Auto) 2.1, Lymph # (Auto) 1.6, [place] # (Auto) 0.3, Eos # (Auto) 0.3, Baso # (Auto) 0.0, Sodium 139, Potassium 3.7, Chloride 108 H, Carbon Dioxide 26, Anion Gap 8.7, BUN 12, Creatinine 0.50 L, Estimated Creat Clear 198, Estimated GFR 131, Est GFR ( Amer) 159, Glucose 112 H, Calcium 8.9, Magnesium 2.0, Total Bilirubin 0.4, AST 35, ALT 24, Alkaline Phosphatase 68, Total Protein 6.6, Albumin 4.0 D, Globulin 2.6, Albumin/Globulin Ratio 1.5 I & O for Last 24 hours: Intake & Output 04/23/25 04/24/25 04/25/25 04/26/25 23:59 23:59 23:59 23:59 Intake Total 1440 / 1440 Output Total 2800 / 2800 Balance -1360 / -1360 Weight 90.718 kg 91.308 kg 92.079 kg Constitutional Constitutional: no acute distress, obese, chronically ill appearing and cooperative *Routine HEENT Exam Head: Present normocephalic Eye: Present EOMI and PERRL ENT: Present mucous membranes moist *Routine Neck Exam Neck: Present supple; Absent lymphadenopathy *Routine Respiratory Exam Respiratory: Present CTA bilaterally; Absent rhonchi, wheezes or crackles *Routine Cardiovascular Exam Cardiovascular: Present RRR *Routine Abdominal Exam Abdominal: Present soft and normoactive bowel sounds; Absent tenderness *Routine Rectal Exam Patient deferred: visual exam *Routine Exam Patient deferred: external exam *Routine Extremities Exam Extremities: Absent cyanosis, clubbing or edema *Routine Skin Exam Skin: Present intact and warm; Absent rash *Routine Neurological Exam Neurological: Present alert, oriented X3 and moving all extremities; Absent altered mental status Results Data Completed and Pending Labs on day of discharge: Labs from last 24 hours 04/26/25 04/26/25 04/25/25 05:34 05:33 19:53 WBC 4.4 L RBC 4.52 Hgb 13.0 Hct 39.6 MCV 87.6 MCH 28.8 MCHC 32.8 RDW 14.5 Plt Count 257 MPV 8.9 Neut % (Auto) 48.3 Lymph % (Auto) 36.9 Arroyo % (Auto) 7.7 Eos % (Auto) 5.7 Baso % (Auto) 0.9 Neut # (Auto) 2.1 Lymph # (Auto) 1.6 [place]o # (Auto) 0.3 Eos # (Auto) 0.3 Baso # (Auto) 0.0 Sodium 139 Potassium 3.7 Chloride 108 H Carbon Dioxide 26 Anion Gap 8.7 BUN 12 Creatinine 0.50 L Estimated Creat Clear 198 Estimated GFR 131 Est GFR ( Amer) 159 Glucose 112 H POC Glucose 111 H 133 H Calcium 8.9 Magnesium 2.0 Total Bilirubin 0.4 AST 35 ALT 24 Alkaline Phosphatase 68 Total Protein 6.6 Albumin 4.0 D Globulin 2.6 Albumin/Globulin Ratio 1.5 04/25/25 04/25/25 16:09 12:14 WBC RBC Hgb Hct MCV MCH MCHC RDW Plt Count MPV Neut % (Auto) Lymph % (Auto) [place]roy[place] % (Auto) Eos % (Auto) Baso % (Auto) Neut # (Auto) Lymph # (Auto) [place]royo # (Auto) Eos # (Auto) Baso # (Auto) Sodium Potassium Chloride Carbon Dioxide Anion Gap BUN Creatinine Estimated Creat Clear Estimated GFR Est GFR ( Amer) Glucose POC Glucose 159 H 129 H Calcium Magnesium Total Bilirubin AST ALT Alkaline Phosphatase Total Protein Albumin Globulin Albumin/Globulin Ratio DS: Diagnosis Discharge Diagnosis (1) Chest pain: Status: Acute Code(s): R07.9 - Chest pain, unspecified (2) Coronary artery disease: Status: Acute Code(s): I25.10 - Atherosclerotic heart disease of [place] coronary artery without angina pectoris (3) Hypertension: Status: Acute Code(s): I10 - Essential (primary) hypertension (4) Diabetes: Status: Acute Code(s): E11.9 - Type 2 diabetes mellitus without complications (5) Hyperlipemia: Status: Acute Code(s): E78.5 - Hyperlipidemia, unspecified Meds Home Medications and Allergies Home Medications ?Medication ?Instructions ?Recorded ?Confirmed ?Type magnesium aspart,citrate,oxide 400 mg PO DAILY #90 caps 11/18/24 04/25/25 Rx blood-glucose,rehabilitation therapist,cont #1 ea 11/20/24 04/25/25 Rx (FreeStyle [place] 3 [place]) pen needle, diabetic 31 gauge x #200 ea 11/20/24 04/25/25 Rx 1/4 (Comfort EZ Pen [place]) tirzepatide 7.5 mg/0.5 mL 7.5 mg (0.5 mL) SQ WEEKLY #2 mL 01/18/25 04/25/25 Rx subcutaneous pen injector (Jeffy) blood-glucose sensor (FreeStyle #3 ea 03/05/25 04/25/25 Rx Jessee 3 Plus Sensor device) evolocumab 140 mg/mL subcutaneous 140 mg SQ Q2W #2 mL 03/05/25 04/25/25 Rx pen injector (Angel Ji) hydroxyzine HCl 25 mg tablet 25 mg PO BID #180 tabs 03/05/25 04/25/25 Rx losartan 25 mg tablet 25 mg PO DAILY #90 tabs 03/05/25 04/25/25 Rx rivaroxaban 2.5 mg tablet (Xarelto) 2.5 mg PO BID #60 tabs 03/05/25 04/25/25 Rx lisdexamfetamine 50 mg capsule 50 mg PO DAILY #30 caps 04/05/25 04/25/25 Rx (Vyvanse) nitroglycerin 0.4 mg sublingual 0.4 mg sublingual Q5-15M PRN chest 04/05/25 04/25/25 Rx tablet pain #20 tabs lisdexamfetamine 10 mg capsule 10 mg PO DAILY #30 caps 04/12/25 04/25/25 Rx (Vyvanse) Basaglar KwikPen U-100 Insulin 100 100 unit SQ HS #15 mL 04/15/25 04/25/25 Rx unit/mL (3 mL) subcutaneous (insulin glargine) Fiasp FlexTouch U-100 Insulin 100 1 sliding scale dose SQ 04/16/25 04/25/25 Rx unit/mL (3 mL) subcutaneous pen USEASDIRECTD #15 mL (insulin aspart (niacinamide)) aspirin 81 mg chewable tablet 81 mg PO DAILY 04/25/25 04/25/25 History ergocalciferol (vitamin D2) 1,250 1,250 mcg PO WEEKLY 04/25/25 04/25/25 History mcg (50,000 unit) capsule fenofibrate nanocrystallized 145 145 mg PO DAILY 04/25/25 04/25/25 History mg tablet furosemide 20 mg tablet 20 mg PO DAILY 04/25/25 04/25/25 History clopidogrel 75 mg tablet 75 mg PO DAILY 30 days #30 tabs 04/26/25 Rx metoprolol succinate 25 mg 25 mg PO DAILY 30 days #30 tabs 04/26/25 Rx tablet,extended release 24 hr New Prescriptions to Start Prescriptions: Larry Montez metoprolol succinate Larry Rolle Allergies Allergy/AdvReac Type Severity Reaction Status Date / Time ondansetron (From Zofran) Allergy Severe Anaphylaxis Verified 04/05/25 13:33 Penicillins Allergy Mild Rash Verified 04/05/25 13:33 semaglutide (From Ozempic) Allergy Mild Vomiting Verified 04/05/25 13:33 Steroid Allergy Allergy Mild Agitated Uncoded 04/05/25 13:33 Discharge Plan Disposition Patient Disposition: Home, Self-Care Condition: Fair Follow up Plan Follow up with: Qiana Forte APRN [Nurse Practitioner, Cardiology] - 05/10/25 2:30 pm Elvin Titus MD [Staff Physician, Family Practice] - 05/05/25 1:00 pm Prescriptions/Medication Reconciliation: New clopidogrel 75 mg Tablet 75 mg PO DAILY 30 Days Qty: 30 2RF metoprolol succinate 25 mg Tablet Extended Release 24 Hr 25 mg PO DAILY 30 Days Qty: 30 1RF Continued magnesium aspart,citrate,oxide 400 mg magnesium capsule 400 mg PO DAILY Qty: 90 3RF lisdexamfetamine [Vyvanse] 50 mg capsule 50 mg PO DAILY Qty: 30 0RF Rx Instructions: morning nitroglycerin 0.4 mg tablet, sublingual 0.4 mg sublingual Q5-15M PRN (Reason: chest pain) Qty: 20 12RF Rx Instructions: do not exceed 3 doses per episode lisdexamfetamine [Vyvanse] 10 mg capsule 10 mg PO DAILY Qty: 30 0RF Rx Instructions: afternoon (DME) pen needle, diabetic [Comfort EZ Pen [place]] 31 gauge x 1/4 needle See Rx Instructions .Route Qty: 200 12RF Rx Instructions: As directed (DME) FreeStyle [place] 3 [place] Misc See Rx Instructions .Route Qty: 1 0RF Rx Instructions: As directed Mounjaro 7.5 mg/0.5 mL pen injector 7.5 mg SQ WEEKLY Qty: 2 3RF (DME) FreeStyle [place] 3 Plus Sensor Device See Rx Instructions .Route Qty: 3 10RF Rx Instructions: As directed Xarelto 2.5 mg tablet 2.5 mg PO BID Qty: 60 3RF hydroxyzine HCl 25 mg tablet 25 mg PO BID Qty: 180 3RF losartan 25 mg tablet 25 mg PO DAILY Qty: 90 3RF Repatha SureClick 140 mg/mL pen injector 140 mg SQ Q2W Qty: 2 10RF insulin glargine [Basaglar KwikPen U-100 Insulin] 100 unit/mL (3 mL) insulin pen 100 unit SQ HS Qty: 15 10RF Fiasp FlexTouch U-100 Insulin 100 unit/mL (3 mL) insulin pen 1 sliding scale dose SQ USEASDIRECTD Qty: 15 12RF Rx Instructions: per sliding scale maximum 150 units/day aspirin 81 mg Tablet,Chewable 81 mg PO DAILY ergocalciferol (vitamin D2) 1,250 mcg (50,000 unit) capsule 1,250 mcg PO WEEKLY furosemide 20 mg tablet 20 mg PO DAILY Patient Comments: TAKE 1 TABLET ORALLY ONCE DAILY fenofibrate nanocrystallized 145 mg tablet 145 mg PO DAILY Patient Comments: TAKE 1 TABLET BY MOUTH EVERY DAY Discontinued Brilinta 90 mg tablet 90 mg PO BID Patient Comments: TAKE 1 TABLET BY MOUTH TWICE DAILY Problem Reconciliation Problems Reviewed?: Yes Patient Discharge Instructions ACTIVITY: Continue current activity DIET: continue same diet Stand Alone Forms: [facility] Work Release Patient Instructions: DI for Chest Pain Print Language: Irish Providers Primary Care Provider: Provider,Referral Admit Provider: Chris Herrera Attending Provider: Chris Herrera
[2025-04-26 16:00] VITALS: PULSE 80
--- NOTE | 2025-04-28 10:52 | SW/DCPLANNER ---
Spoke with patient on the phone. Patient stated that she is doing good. Patient stated that she is aware of her upcoming appointments. Patient stated that she was able to get her new medicine brought to her room before she was discharged. Patient stated that she has no concerns or questions at this time. Charmaine Cat
--- NOTE | 2025-05-14 11:15 | SW/DCPLANNER ---
Patient called me back and was able to speak to her. Patient didnt go to her upcoming appointments. Patient stated that she was working. Patient stated that she was able to get her medicine brought to [facility] from [facility] to her room the day she was discharged. Patient stated that she has no concerns or questions at this time. Charmaine Cat
== END 2025-04-26 16:58 | disposition home or self-care (01) ==
LOC: ER 04-25 00:04 → 2ND 04-25 01:38
PROVIDERS: Physician Assistant; Admitting Provider Student in an Organized Health Care Education/Training Program; Emergency Provider Emergency Medicine; Visit Provider Student in an Organized Health Care Education/Training Program
DX: R07.9 Chest pain, unspecified (principal); I25.10 Atherosclerotic heart disease of native coronary artery without angina pectoris; E11.9 Type 2 diabetes mellitus without complications; I10 Essential (primary) hypertension; F90.9 Attention-deficit hyperactivity disorder, unspecified type; K21.9 Gastro-esophageal reflux disease without esophagitis; K80.20 Calculus of gallbladder without cholecystitis without obstruction; K76.0 Fatty (change of) liver, not elsewhere classified; M79.602 Pain in left arm; R68.84 Jaw pain; E66.9 Obesity, unspecified; I25.2 Old myocardial infarction; E78.5 Hyperlipidemia, unspecified; Z68.39 Body mass index [BMI] 39.0-39.9, adult; Z88.8 Allergy status to other drugs, medicaments and biological substances; Z88.0 Allergy status to penicillin; Z79.4 Long term (current) use of insulin; Z79.01 Long term (current) use of anticoagulants; Z79.82 Long term (current) use of aspirin; Z79.899 Other long term (current) drug therapy
CPT/HCPCS: 36415; 71045; 71275; 74177; 80053; 82962; 83690; 83735; 83880; 84484; 84703; 85025; 85378; 85610; 93005; 93306; 96374; 99285; G0378; J1171; J2550; Q9967